=== PATIENT | female | born 1950 | race Caucasian/White ===

== ENCOUNTER 2016-03-19 19:36 | Emergency (ER) | payer BC ==
[~2016-03-19] VITALS: Ht 149.9 cm; Wt 46.7 kg
[~2016-03-19 19:36] MED LIST: AMLO5TAB4 PO; ATOR80TA63 PO; DICY10CA59 PO; LISI2.5T48 PO; PANT20TA2 PO; [UNRECOGNIZED DRUG - CODE] PO
[2016-03-19 19:50] VITALS: BP 152/70; PULSE 90; RESP 18; TEMP 98.4; O2SAT 98
--- NOTE | 2016-03-19 20:00 | NUR ---
Patient to ER bed 04 to gown for evaluation. Side rails up.
--- NOTE | 2016-03-19 20:05 | NUR ---
Pt brought by self, A&Ox4, pt c/o abd pain 09/16,N/V since today, skin pink and warm, cap refill <3, VSS, ambulatory, radial pulses equal and strong.
--- NOTE | 2016-03-19 20:59 | NUR ---
Dr Leiva at bedside examining patient.
--- NOTE | 2016-03-19 21:38 | NUR ---
Pt on stable condition, abd pain 4/10, skin pink and warm, cap refill <3.
[2016-03-19] MEDS ORDERED: NACL 0.9% 1,000 ML IV ONE (21:55)
[2016-03-19] MEDS ORDERED: DIPHENHYDRAMINE INJ 50 MG/ML VIAL IVP ONE (22:00)
[2016-03-19] MEDS ORDERED: MORPHINE 2 MG/ML INJ. SYRINGE IVP ONE (22:00)
[2016-03-19 22:08] LABS: BILIRUBIN,URINE NEGATIVE (NEGATIVE); BLOOD, URINE NEGATIVE (NEGATIVE); CLARITY/URINE SL HAZY (CLEAR); COLOR,URINE YELLOW (YELLOW); GLUCOSE,URINE NEGATIVE (NEGATIVE); KETONES,URINE 1+ (NEGATIVE); LEUKOCYTE ESTERASE ,URINE NEGATIVE (NEGATIVE); NITRITE, URINE NEGATIVE (NEGATIVE); PH,URINE 5.5 (5.0-8.0); PROTEIN URINE TRACE (NEGATIVE); UROBILINOGEN,URINE 0.2 (0.2-1.0)
[2016-03-19 22:29] LABS: HEMATOCRIT 38.5 % (36-48); MEAN CORPUSCULAR HEMOGLOBIN 29 pg (27-31); MEAN CORPUSCULAR HGB CONC 34 % (32-36); MEAN CORPUSCULAR VOLUME 85 fL (79.0-98.0); PLATELET COUNT (AUTO) 194 K/uL (130-430); RED BLOOD CELL COUNT(AUTO) 4.52 MIL/uL (4.2-6.2); RED CELL DISTRIBUTION WIDTH 14.6 % (9.0-15.0); WHITE BLOOD COUNT (AUTO) 15.8 K/uL (4.8-10.8)
[2016-03-19 22:30] LABS: CALCIUM 8.8 mg/dL (8.4-11.0); CREATININE 0.81 mg/dL (0.55-1.30)
[2016-03-19 22:33] LABS: RBC,URINE 0-3 /HPF (0-3); WBC,URINE 0-3 /HPF (0-3)
[2016-03-19 22:34] LABS: BACTERIA,URINE FEW /HPF (None Seen); CALCIUM OXALATE CRYSTALS,UR 2+ /HPF (None Seen); MUCUS,URINE 2+ /LPF (None Seen)
[2016-03-19 22:36] LABS: ALBUMIN 3.4 g/dL (3.4-4.8); TOTAL BILIRUBIN 0.4 mg/dL (0.0-1.0); TOTAL PROTEIN, SERUM 6.8 g/dL (6.4-8.3)
--- NOTE | 2016-03-19 22:39 | NUR ---
Pt on stable condition, denies pain at this time, VSS.
[2016-03-19 22:43] LABS: BAND % (MANUAL) 6 % (0-6); BASOPHILS % (MANUAL) 0 % (0-2); EOSINOPHILS % (MANUAL) 0 % (0-7); LYMPHOCYTES % (MANUAL) 1 % (20-46); MONOCYTES % (MANUAL) 3 % (0-11)
--- NOTE | 2016-03-19 22:45 | NUR ---
Tia pizarro in [facility] - 03/19/16 at 2339 by [email or web address] Report given to Mike WEEMS
--- NOTE | 2016-03-19 23:30 | NUR ---
Tia pizarro in [facility] - 03/19/16 at 2345 by [email or web address] Report given to Dada WEEMS
--- NOTE | 2016-03-19 23:44 | NUR ---
Report given to Mis WEEMS
[2016-03-20] MEDS ORDERED: MORPHINE 2 MG/ML INJ. SYRINGE IVP ONE (00:30)
[2016-03-20 02:55] VITALS: BP 142/68; PULSE 78; RESP 18; TEMP 98.1; O2SAT 98
--- NOTE | 2016-03-20 02:55 | NUR ---
Patient given written and verbal discharge instructions and verbalizes understanding. ER MD Leiva discussed with patient the results and treatment provided. Given copies of tests performed in ER. Patient in stable condition. ID arm band removed. IV catheter removed intact and dressing applied, no active bleeding. Rx of tramadol and compazine given. Patient educated on pain management and to follow up with PMD. Pain Scale 0/10 Opportunity for questions provided and answered.
== END 2016-03-20 02:55 | disposition home or self-care (01) ==
LOC: SED 19:36
DX: E86.0 Dehydration (principal); R10.33 Periumbilical pain; K21.9 Gastro-esophageal reflux disease without esophagitis; I10 Essential (primary) hypertension; K58.9 Irritable bowel syndrome, unspecified; E78.00 Pure hypercholesterolemia, unspecified; C54.1 Malignant neoplasm of endometrium; Z88.0 Allergy status to penicillin; Z90.710 Acquired absence of both cervix and uterus
CPT/HCPCS: 36415; 74020; 80053; 81000; 83605; 83690; 85007; 85027; 87040; 96361; 96374; 96375; 96376; 99285; J1200; J2270 ×2; J7030

== ENCOUNTER 2016-05-16 17:24 | Inpatient (IN) | payer BC ==
[~2016-05-16] VITALS: Ht 154.9 cm; Wt 46.7 kg
[2016-05-16] MEDS ORDERED: NACL 0.9% 1,000 ML IV SCH (17:34)
[2016-05-16 17:39] VITALS: BP 147/78; PULSE 92; RESP 22; TEMP 96; O2SAT 100
[2016-05-16 18:10] LABS: LYMPHOCYTES # (AUTO) 0.8 K/uL (1.0-5.5); LYMPHOCYTES % (AUTO) 4.6 % (20.5-51.5); MONOCYTES # (AUTO) 0.7 K/uL (0.0-1.0); NEUTROPHILS # (AUTO) 15.2 K/uL (1.8-7.7)
[2016-05-16 18:15] LABS: BASOPHILS # (AUTO) 0.3 K/uL (0.0-0.2); BASOPHILS % (AUTO) 1.7 % (0.0-2.0); HEMATOCRIT 39.8 % (36-48); HEMOGLOBIN 13.6 g/dL (12.0-16.0); MEAN CORPUSCULAR HEMOGLOBIN 29 pg (27-31); MEAN CORPUSCULAR HGB CONC 34 % (32-36); MEAN CORPUSCULAR VOLUME 84 fL (79.0-98.0); MONOCYTES % (AUTO) 4.3 % (1.7-9.3); NEUTROPHILS % (AUTO) 89.4 % (40.0-70.0); PLATELET COUNT (AUTO) 248 K/uL (130-430); RED BLOOD CELL COUNT(AUTO) 4.72 MIL/uL (4.2-6.2); RED CELL DISTRIBUTION WIDTH 13.7 % (9.0-15.0)
[2016-05-16 18:21] LABS: CALCIUM 9.7 mg/dL (8.4-11.0); CREATININE 1.02 mg/dL (0.55-1.30); POTASSIUM 3.9 mmol/L (3.5-5.1)
[2016-05-16 18:22] LABS: PROTHROMBIN TIME 10.4 SECS (9.5-12.5)
[2016-05-16 18:25] LABS: ALBUMIN 3.9 g/dL (3.4-4.8); TOTAL BILIRUBIN 0.4 mg/dL (0.0-1.0); TOTAL PROTEIN, SERUM 7.6 g/dL (6.4-8.3)
[2016-05-16] MEDS ORDERED: KETOROLAC TROMETHAMINE 30 MG VIAL IVP ONE (19:00)
[2016-05-16] MEDS ORDERED: PROCHLORPERAZINE EDISYLATE 10 MG/2 ML VIAL IVP ONE (19:00)
[2016-05-16] MEDS ORDERED: metroNIDAZOLE 500 mg/NS 100 ML IV ONE ×2 (19:00→22:34)
[2016-05-16] MEDS ORDERED: ONDANSETRON HCL 4 MG/2 ML VIAL IVP ONE (19:00)
--- NOTE | 2016-05-16 19:00 | NUR ---
Placed in room 4 . Placed on director of exhibits, blood pressure machine and pulse oximeter. To gown for exam. Side rails up.
--- NOTE | 2016-05-16 19:00 | NUR ---
Pt presents to ED with c/o intermitten sharp pain at epigastric abdomen 11/16, started since yesterday. pt stated she visited ED in the past for the same problem before. Hypoactive bowel sound, abdomen distended and tender. A&Ox4, denies SOB or chestpain, denies N/V/D. Skin intact. Will continue to monitor
--- NOTE | 2016-05-16 19:20 | NUR ---
MD Bear at bedside examining pt
--- NOTE | 2016-05-16 20:10 | NUR ---
NG tube insertion unsuccessful. 14 fr NG tube removed, pt tolerated well, no distress noted.
[2016-05-16] MEDS ORDERED: LIP80 PO (20:16)
[2016-05-16] MEDS ORDERED: PROC10TA PO (20:16)
--- NOTE | 2016-05-16 20:22 | NUR ---
Medication reconciliation completed with information provided by pt. Any prior medication reconciliation on file was reviewed and corrected.
--- NOTE | 2016-05-16 20:28 | NUR ---
SEPIS protocol met, 1500 mL NS bolus administered, blood cult x2, lactic acid x2, broad spectrum antibx given
[2016-05-16] MEDS ORDERED: MORPHINE 2 MG/ML INJ. SYRINGE IVP PRN (20:30)
[2016-05-16] MEDS ORDERED: NS 500 ML IV ONE (20:30)
[2016-05-16] MEDS ORDERED: ONDANSETRON HCL 4 MG/2 ML VIAL IVP PRN (20:30)
--- NOTE | 2016-05-16 20:38 | NUR ---
ADMISSION NOTE Received patient from ER via gurney. Patient admitted with diagnosis of Small bowel obstruction. Patient is awake, alert, oriented X 4. Patient oriented to hospital room, call light, toileting, pain management and safety-teach back done. Patient informed that [place] will be her nurse and that their room number is 103B. Personal belongings checked and Belongings List documented. Call light within reach.
--- NOTE | 2016-05-16 20:40 | NUR ---
Patient will be admitted to care of . Admitted to med-surg unit. Will go to room 103A. Belongings list completed. Summary report printed. Report given to Zuleyka WEEMS
--- NOTE | 2016-05-16 20:42 | NUR ---
INITIAL NOTE Patient alert, awake, verbally communicate. AO x 4. Denied of pain at this time. Skin warm and dry to touch. IV intact to RFA, no redness, no swelling, no drainage. On bolus NS 500ml from ER. Discussed the safety issue, use call light when need help, and plan of care, verbally understanding. Safety measure maintained. Call light within reached. Bed in low position, bed alarm on, side rails up. Will continue to monitor.
[2016-05-16 21:12] VITALS: BP 116/54; PULSE 98; RESP 18; TEMP 98.6; O2SAT 97
--- NOTE | 2016-05-16 21:45 | NUR ---
Consultation Paged Reason for consultation: Small Bowel Obstruction Was consult called: Yes Person who was notified: Radha Consulting Physician: Gucci Kiran Iv Technician Specialty: Streetcar Dispatcher
--- NOTE | 2016-05-16 21:45 | NUR ---
BARAK FRANCISCO ASSESSED AND TALKED TO PATIENT AT BEDSIDE
--- NOTE | 2016-05-16 22:05 | NUR ---
ARTIST AND REPERTOIRE MANAGER AMBULATED PATIENT TO BATHROOM
[2016-05-16] MEDS ORDERED: LEVOFLOXACIN 500 MG/D5W 100 ML IV ONE (22:34)
[2016-05-16] MEDS: D5/0.45 NS 1,000 ML IV SCH (22:49)
[2016-05-16] MEDS: LEVOFLOXACIN 500 MG/D5W 100 ML IV SCH (22:55)
--- NOTE | 2016-05-16 23:12 | NUR ---
ROUND Patient resting on the bed with eyes closed. No acute distress. Safety measure maintained. Call light within reached. Continue to monitor.
[2016-05-16 23:23] VITALS: BP 116/54; PULSE 98; RESP 18; TEMP 98.6; O2SAT 97
[2016-05-17 00:03] VITALS: BP_SYST 120; BP_SYST 132; BP_DIAS 58; BP_DIAS 65; PULSE 105; PULSE 89; RESP 18; RESP 20; TEMP 98.6; TEMP 99.4; O2SAT 97; O2SAT 98
--- NOTE | 2016-05-17 01:08 | NUR ---
ROUND Patient sleeping comfortable. Respiration even and unlabored. No acute distress. Safety measure maintained. Bed in low position, bed alarm on, side rails up. Call light within reached. Continue to monitor.
[2016-05-17] MEDS: metroNIDAZOLE 500 mg/NS 100 ML IV SCH ×3 (02:58→18:09)
[2016-05-17 04:34] VITALS: BP 120/59; PULSE 68; RESP 18; TEMP 98.8; O2SAT 94
--- NOTE | 2016-05-17 05:18 | NUR ---
ROUND Patient sleeping comfortable. No acute distress. Safety measure maintained. Bed in low position, bed alarm on, side rails up. Call light within reached. Continue to monitor.
--- NOTE | 2016-05-17 06:43 | NUR ---
CLOSING NOTE Patient resting on the bed comfortable. Denied of pain. No c/o nausea or vomiting. Skin warm and dry to touch. IV intact, no redness, no swelling, no drainage. IVF infusing well. Continue on NPO. Ambulated to bathroom with assistance. All needs met. Hourly rounding during shift. Safety measure maintained. Call light within reached. Bed in low position, side rails up, bed alarm on. Will endorse to morning shift nurse.
[2016-05-17 07:33] LABS: BASOPHILS % (AUTO) 0.3 % (0.0-2.0); EOSINOPHILS % (AUTO) 0.7 % (0.0-4.0); HEMOGLOBIN 10.6 g/dL (12.0-16.0); LYMPHOCYTES # (AUTO) 1.2 K/uL (1.0-5.5); LYMPHOCYTES % (AUTO) 23.8 % (20.5-51.5); MEAN CORPUSCULAR HEMOGLOBIN 29 pg (27-31); MEAN CORPUSCULAR HGB CONC 33 % (32-36); MEAN CORPUSCULAR VOLUME 86 fL (79.0-98.0); MONOCYTES # (AUTO) 0.5 K/uL (0.0-1.0); MONOCYTES % (AUTO) 9.6 % (1.7-9.3); NEUTROPHILS # (AUTO) 3.4 K/uL (1.8-7.7); NEUTROPHILS % (AUTO) 65.6 % (40.0-70.0); PLATELET COUNT (AUTO) 175 K/uL (130-430); RED BLOOD CELL COUNT(AUTO) 3.71 MIL/uL (4.2-6.2); RED CELL DISTRIBUTION WIDTH 13.9 % (9.0-15.0); WHITE BLOOD COUNT (AUTO) 5.1 K/uL (4.8-10.8)
--- NOTE | 2016-05-17 08:00 | NUR ---
OUT TO ABDOMINAL SMALL BOWEL FOLLOWTHROUGH VIA WHEELCHAIR.
[2016-05-17] MEDS ORDERED: GASTROGRAFIN 120 ML ONE (08:18)
[2016-05-17 08:19] LABS: ALBUMIN 2.6 g/dL (3.4-4.8); CALCIUM 7.9 mg/dL (8.4-11.0); CREATININE 0.88 mg/dL (0.55-1.30); POTASSIUM 4.1 mmol/L (3.5-5.1); TOTAL BILIRUBIN 0.3 mg/dL (0.0-1.0); TOTAL PROTEIN, SERUM 5.3 g/dL (6.4-8.3)
[2016-05-17] MEDS: ATORVASTATIN 20 MG TABLET PO SCH (09:00)
[2016-05-17] MEDS: amLODIPine BESYLATE 5 MG TABLET PO SCH (09:00)
[2016-05-17] MEDS: D5/0.45 NS 1,000 ML IV SCH ×2 (09:00→18:10)
--- NOTE | 2016-05-17 10:59 | NUR ---
Call from patients sister Vi (Wilma) - [phone] Asked to have the patient call her back when she is available.
--- NOTE | 2016-05-17 11:10 | NUR ---
Pt back from xray . Per tech, Pt will continue to be NPO for pear picker at 1200 to continue small bowel follow through.
[2016-05-17 12:11] VITALS: BP 156/65; PULSE 93; RESP 16; TEMP 97.7; O2SAT 98
--- NOTE | 2016-05-17 13:10 | NUR ---
Care transferred to Tejal WEEMS. Report given. \ Pt in stable condition. Still NPO at this time until radiology completes the small bowel followthrough.
--- NOTE | 2016-05-17 13:25 | NUR ---
[place] of [facility] Received pt AAOx4, ambulatory. Pt denies any pain or discomfort. Pt had yellow watery BM in bedside commode. Pt's family member at bedside. IV RFA intact, patent, no infiltration noted. Bed in lowest position. Call light in reach. Will continue to monitor.
--- NOTE | 2016-05-17 15:25 | NUR ---
Patient Round Pt resting in bed. Pt denies any pain or discomfort at this time. Will continue to monitor.
[2016-05-17 16:04] VITALS: BP 143/57; PULSE 88; RESP 16; TEMP 98.4; O2SAT 99
--- NOTE | 2016-05-17 16:45 | NUR ---
MD/Patient Round Dr. Solis in to see pt. Dr. Solis is aware of small bowel follow through results from today. New orders made for pt to be on full liquid diet and for consults Dr. Tyler and Dr. Goff. Will continue with plan of care. Pt still having liquid diarrhea, denies any pain or discomfort at this time. Will continue to monitor.
--- NOTE | 2016-05-17 16:54 | NUR ---
Consult was called Re :Abdominal pain spoke with Antonella from Dr Tyler office.
--- NOTE | 2016-05-17 17:02 | NUR ---
Consult was called Re:Abdominal pain spoke Tomeka from Dr Shell harley.
--- NOTE | 2016-05-17 18:58 | NUR ---
Closing/ Pt remains calm lying in bed. Family member at bedside. Pt denies any pain or discomfort at this time. Pt states her diarrhea has been "less frequent" but still liquid. Pt was also seen by Dr. Tyler for consult. Per pt, Dr. Tyler advised her to "eat dinner" tonight. Dietary notified to bring diet tray for pt. Bed in lowest position. Call light in reach. Will endorse plan of care to lead presser nurse.
[2016-05-17 19:00] VITALS: BP 135/55; PULSE 80; RESP 16; TEMP 98; O2SAT 99
--- NOTE | 2016-05-17 19:15 | NUR ---
change of shift.pt's initial assessment.pt.is s/p sm/bwl follow thru.pt.presents multiple bm's:bsc provided. iv fluids infusing i inquired if pt.presents nausea,abd cramping/pain.pt.stated no she is fine.call light w/in pt's reach. @ the bedside.
[2016-05-17 20:00] VITALS: BP 135/55; PULSE 80; RESP 16; TEMP 98; O2SAT 99
--- NOTE | 2016-05-17 20:00 | NUR ---
pt.assessed.v/s assessed:values w/in normal limits.bsc emptied.no c/o nausea,adb pain.no request@this hour.call light w/in pt's reach.
[2016-05-17] MEDS: LEVOFLOXACIN 500 MG/D5W 100 ML IV SCH (21:39)
--- NOTE | 2016-05-17 22:00 | NUR ---
pt.assessed.pt.repositioned self.bsc emptied.ivpb administered.iv fluids infusing. i inquird if pt.presents requested pt.stated anoher blanket.i have provided 2 blankets; warmed.kathy light w/in pt's reach.
[2016-05-18] VITALS: BP 124/56; PULSE 85; RESP 16; TEMP 98.9; O2SAT 98
--- NOTE | 2016-05-18 | NUR ---
pt.assessed.pt.repositioned.pt.presents quiescent affect;calm,asleep.bsc emptied.no distress/discomfort manifested.call light w/in pt's reach.
--- NOTE | 2016-05-18 02:00 | NUR ---
pt.assessed.pt.repositioned.iv fluids infusing.bsc emptied.call light placed w/in pt's reach.
[2016-05-18 04:00] VITALS: BP 129/99; PULSE 77; RESP 16; TEMP 98.1; O2SAT 99
--- NOTE | 2016-05-18 04:00 | NUR ---
pt.assessed.v/s assessed;values w/in normal values.pt.reposiiotned.bsc;emptied.iv fluids infusing. no request@this hour.call light w/in pt's reach.
--- NOTE | 2016-05-18 06:00 | NUR ---
pt.assessed.pt.presents quiescent affect;calm,asleep.iv fluids infusing.bsc emptied.call light w/in pt's reach.no distress/discomfort manifested.
[2016-05-18] MEDS: metroNIDAZOLE 500 mg/NS 100 ML IV SCH ×2 (06:12→10:42)
--- NOTE | 2016-05-18 07:30 | NUR ---
Initial Note Received patient from caustic cresylate shift superintendent nurse, patient is currently resting in bed, patient is alert and oriented x 4, no signs of distress, patient has no complaints of pain at this time, assessment complete, patient currently has IV access in right forearm with fluids infusing, no signs of infiltrations noted, instructed patient to use call webster if assistance is needed, patient verbalized understanding, call webster left within reach of patient's hand, bed in lowest position, two side rails up, fall precautions in place, will continue to monitor patient.
[2016-05-18 08:00] VITALS: BP 131/65; PULSE 73; RESP 16; TEMP 98.3; O2SAT 98
--- NOTE | 2016-05-18 08:10 | NUR ---
medications morning medications given to patient, educated patient to potential side effects of medications, patient verbalized understanding, no other needs at this time, will continue to monitor, fall precautions in place.
[2016-05-18] MEDS: ATORVASTATIN 20 MG TABLET PO SCH (08:11)
[2016-05-18] MEDS: amLODIPine BESYLATE 5 MG TABLET PO SCH (08:11)
[2016-05-18] MEDS: D5/0.45 NS 1,000 ML IV SCH (08:12)
--- NOTE | 2016-05-18 10:07 | NUR ---
RN ROUNDS PATIENT IS CURRENTLY RESTING IN BED TALKING ON PHONE, PATIENT DENIES PAIN AT THIS TIME, WILL CONTINUE TO MONITOR, CALL LI LEFT NEXT TO PATIENT'S HAND, BED IN LOWEST POSITION, TWO SIDE RAILS UP, FALL PRECAUTIONS INPLACE.
--- NOTE | 2016-05-18 10:18 | NUR ---
Admit for AP, partial sbo, likely from scar tissue from rx tx per md notes. Obstruction cleared, will need f/u with pcp and pos anticipate home with family/deni rn/shauna/rupesh hcp [phone]
--- NOTE | 2016-05-18 11:06 | NUR ---
Faxed DC order Home to [facility] at [phone] Filed fax confirmation in binder.
--- NOTE | 2016-05-18 11:45 | NUR ---
RN ROUNDS PATIENT IS CURRENTLY RESTING IN BED, NO COMPLAINTS OF PAIN, NO OTHER NEEDS AT THIS TIME, WILL CONTINUE TO MONITOR, CALL LI LEFT NEXT TO PATIENT'S HAND, BED IN LOWEST POSITION, TWO SIDE RAILS UP, FALL PRECAUTIONS IN PLACE.
[2016-05-18 12:29] VITALS: BP 158/63; PULSE 76; RESP 17; TEMP 97.2; O2SAT 99
[2016-05-18 13:42] VITALS: BP 135/75; PULSE 70; RESP 16; TEMP 98; O2SAT 98
--- NOTE | 2016-05-18 13:45 | NUR ---
RN ROUNDS PATIENT IS CURRENTLY RESTING IN BED,PATIENT HAS NO COMPLAINTS OF PAIN, PATIENT STATED SHE WAS ABLE TO HAVE A BM WITH NO PROBLEMS, WILL CONTINUE TO MONITOR, CALL LI LEFT NEXT TO PATIENT'S HAND, BED IN LOWEST POSITION, TWO SIDE RAILS UP, FALL PRECAUTIONS IN PLACE.
--- NOTE | 2016-05-18 14:20 | NUR ---
D/C Patient Patient given medication reconciliation form and D/C instructions. Exit Care provided. Patient verbalized understanding. MD discussed with patient the results and treatment provided. Ambulatory with steady gait for discharge to home. Patient in stable condition, ID band removed. IV catheter removed, intact and dressing applied, no active bleeding.Patient educated on pain management. All belongings sent with patient.
--- NOTE | 2016-05-19 15:23 | NUR ---
Discharge Follow Up Phone Call: SPOT BILLING CLERK called and spoke with pt ([phone]). Pt states that she is doing well; there are no questions regarding discharge or medication instructions; pt has an appointment with the GI Doctor on 05/20/16; pt will schedule a PCP follow up appointment. SPOT BILLING CLERK offered to assist pt with scheduling PCP appointment, but pt states that she will schedule the appointment. Pt did not express any other needs or concerns and denied the need for additional follow up at this time. No further follow up phone calls required at this time.
== END 2016-05-18 14:20 | disposition home or self-care (01) | DRG 388 ==
LOC: SED 17:24 → SMU 20:25
PROVIDERS: ADMIT Internal Medicine Hospice and Palliative Medicine; ATTEND Internal Medicine
DX: K56.7 Ileus, unspecified (principal); E43 Unspecified severe protein-calorie malnutrition; Z68.1 Body mass index [BMI] 19.9 or less, adult; E78.00 Pure hypercholesterolemia, unspecified; I10 Essential (primary) hypertension; K21.9 Gastro-esophageal reflux disease without esophagitis; D72.829 Elevated white blood cell count, unspecified; D64.9 Anemia, unspecified; Z85.42 Personal history of malignant neoplasm of other parts of uterus; Z87.11 Personal history of peptic ulcer disease; Z88.0 Allergy status to penicillin; Z90.710 Acquired absence of both cervix and uterus; Z79.899 Other long term (current) drug therapy
CPT/HCPCS: 36415; 74250-TC; 80053; 83605; 83690-TC; 85025; 85610-TC; 85730-TC; 87040-TC; 93005; 96365; 96375; 99291; J0780; J1885; J1956; J2405; J3490; J7030; J7040; Q9963

== ENCOUNTER 2016-10-10 04:12 | Inpatient (IN) | payer BC ==
[2016-10-10] VITALS (7 sets, daily range): BP systolic 122–158
[~2016-10-10] VITALS: Ht 177.8 cm; Wt 48.1 kg
[~2016-10-10 04:12] MED LIST changes: +LIP80 PO; -LISI2.5T48 PO; +PROC10TA PO; -[UNRECOGNIZED DRUG - CODE] PO
--- NOTE | 2016-10-10 04:12 | NUR ---
Pt in waiting room awaiting available bed. stable.
[2016-10-10] MEDS ORDERED: NACL 0.9% 1,000 ML IV ONE ×2 (04:34→07:15)
--- NOTE | 2016-10-10 04:40 | NUR ---
Patient to ER bed 7 to gown for evaluation. Side rails up. Report given to FAUSTINA Degroot.
--- NOTE | 2016-10-10 04:41 | NUR ---
Patient AAOx4, ambulatory with steady gait. Patient states having pain to lower abdomen since approximately 2100 last night, states having 1 episode of nausea and vomiting prior to ER visit. Patient states pain scale 8/10, nonradiating. Patient states last bowel movement was yesterday morning. Abdomen tender to palpation, bowel sounds present in all 4 quadrants. Patient denies any other complaints.
[2016-10-10] MEDS ORDERED: ONDANSETRON HCL 4 MG/2 ML VIAL IVP ONE (04:45)
--- NOTE | 2016-10-10 04:50 | NUR ---
ER at bedside examining patient.
[2016-10-10] MEDS ORDERED: MORPHINE 4 MG/ML INJ. SYRINGE IVP ONE (05:00)
--- NOTE | 2016-10-10 05:20 | NUR ---
# 22 gauge angiocath placed to right hand. Use of asceptic technique. Blood return noted. Flushed with 10 cc of normal saline. No evidence of infiltration noted. Patient tolerated well.
[2016-10-10 05:21] LABS: BASOPHILS # (AUTO) 0.1 K/uL (0.0-0.2); BASOPHILS % (AUTO) 0.4 % (0.0-2.0); EOSINOPHILS % (AUTO) 0.2 % (0.0-4.0); HEMATOCRIT 38.9 % (36-48); HEMOGLOBIN 12.9 g/dL (12.0-16.0); LYMPHOCYTES % (AUTO) 7.8 % (20.5-51.5); MEAN CORPUSCULAR HEMOGLOBIN 29 pg (27-31); MEAN CORPUSCULAR HGB CONC 33 % (32-36); MEAN CORPUSCULAR VOLUME 87 fL (79.0-98.0); MONOCYTES # (AUTO) 0.5 K/uL (0.0-1.0); MONOCYTES % (AUTO) 3.7 % (1.7-9.3); NEUTROPHILS # (AUTO) 10.9 K/uL (1.8-7.7); NEUTROPHILS % (AUTO) 87.9 % (40.0-70.0); PLATELET COUNT (AUTO) 202 K/uL (130-430); RED BLOOD CELL COUNT(AUTO) 4.46 MIL/uL (4.2-6.2); RED CELL DISTRIBUTION WIDTH 13.6 % (9.0-15.0); WHITE BLOOD COUNT (AUTO) 12.6 K/uL (4.8-10.8)
[2016-10-10 05:33] LABS: PROTHROMBIN TIME 10.4 SECS (9.5-12.5)
[2016-10-10 05:50] LABS: BILIRUBIN,URINE NEGATIVE (NEGATIVE); BLOOD, URINE NEGATIVE (NEGATIVE); CLARITY/URINE HAZY (CLEAR); COLOR,URINE YELLOW (YELLOW); GLUCOSE,URINE NEGATIVE (NEGATIVE); KETONES,URINE NEGATIVE (NEGATIVE); LEUKOCYTE ESTERASE ,URINE TRACE (NEGATIVE); NITRITE, URINE NEGATIVE (NEGATIVE); PROTEIN URINE NEGATIVE (NEGATIVE); UROBILINOGEN,URINE 0.2 (0.2-1.0)
[2016-10-10 06:06] LABS: BACTERIA,URINE FEW /HPF (None Seen); RBC,URINE 0-3 /HPF (0-3); WBC,URINE 0-3 /HPF (0-3)
[2016-10-10 06:08] LABS: URINE AMORPHOUS PHOSPHATES 4+ /HPF (None Seen)
[2016-10-10] MEDS ORDERED: MORPHINE 2 MG/ML INJ. SYRINGE IVP ONE (06:30)
--- NOTE | 2016-10-10 06:30 | NUR ---
Patient stable, no signs of distress noted. Will continue to monitor.
[2016-10-10 06:39] LABS: CREATININE 1.04 mg/dL (0.55-1.30); POTASSIUM 3.6 mmol/L (3.5-5.1); TOTAL BILIRUBIN 0.5 mg/dL (0.0-1.0)
[2016-10-10 06:40] LABS: ALBUMIN 3.8 g/dL (3.4-4.8)
[2016-10-10] MEDS ORDERED: LIP40 PO (07:07)
[2016-10-10] MEDS ORDERED: RANI300T4 PO (07:08)
[2016-10-10] MEDS ORDERED: MORPHINE 2 MG/ML INJ. SYRINGE IVP PRN (07:30)
[2016-10-10] MEDS ORDERED: HYDROcodone/ACETAMIN 10-325 MG TAB PO PRN (07:30)
[2016-10-10] MEDS ORDERED: ONDANSETRON HCL 4 MG/2 ML VIAL IVP PRN (07:30)
[2016-10-10] MEDS ORDERED: ACETAMINOPHEN 325 MG TABLET PO PRN (07:30)
--- NOTE | 2016-10-10 07:44 | NUR ---
Patient will be admitted to care of Dr. Castro. Admitted to med surg unit. Will go to room 117 B. Belongings list completed. Summary report printed. Report given to FAUSTINA Stokes via telephone.
--- NOTE | 2016-10-10 07:52 | NUR ---
ADMISSION NOTE Received patient from ER via gurney. Patient admitted with diagnosis of Abdominal pain possible small bowel obstruction. Patient is awake, alert, oriented X 3. Patient oriented to hospital room, call light, toileting, pain management and safety-teach back done. Patient informed that Mee will be her nurse and that their room number is 117B. Personal belongings checked and Belongings List documented. Call light within reach.
[2016-10-10] MEDS ORDERED: NON-FORMULARY MEDICATION (Ranitidine Hcl 300 MG) PO SCH (09:00)
--- NOTE | 2016-10-10 09:00 | NUR ---
Irene pritchard; Seen by Dr. Noland and talk to pt.
[2016-10-10] MEDS: D5NS 1,000 ML IV SCH ×2 (09:53→18:49)
[2016-10-10] MEDS: ENOXAPARIN SODIUM 30 MG/0.3 ML SYRINGE SUBCUT SCH (09:55)
--- NOTE | 2016-10-10 10:02 | NUR ---
CONSULT: DR AMINAH CHANG IS AT THE UNIT AND AWARE OF THE CONSULT.
--- NOTE | 2016-10-10 10:16 | NUR ---
Cornel rounds: Seen by Dr. Cox and talk to pt.
--- NOTE | 2016-10-10 10:17 | NUR ---
rounds: patient assisted to toilet, able to walk with assist. complained of abdominal pain. due meds wll be given thru i.v.
[2016-10-10] MEDS ORDERED: GASTROGRAFIN 120 ML ONE (14:14)
--- NOTE | 2016-10-10 14:30 | NUR ---
Small bowel follow through: small bowel series done and waiting for the result.
--- NOTE | 2016-10-10 17:44 | NUR ---
B.M. patient had a bowel movement, watery and brown in color.
--- NOTE | 2016-10-10 18:28 | NUR ---
SBFT: result came in no evidence of SBO. Informed Dr. Anthony with diet order and no surgery. Paged Dr. Castro for the result.
--- NOTE | 2016-10-10 18:56 | NUR ---
closing notes: patient on the toilet seat. Stable. I.v. access patent. Call light within reach. Informed Dr. Castro of Preliminary SBFT result. No new order and patient will stay overnight until the final report. Report will be given to shift stacker.
--- NOTE | 2016-10-10 19:45 | NUR ---
INITIAL NOTE Patient resting on the bed. No acute distress. Respiration even and unlabored. AO x 4. Denied of pain at this time. Skin warm and dry to touch. IV intact to right hand, no redness, no swelling, no drainage. On D5 NS at 100ml/hr, infusing well. at bedside. Discussed the safety issue, use call light when need help, and plan of care, verbally understanding. Safety measure maintained. Bed in low position, side rails up. Call light within reached. Will continue to monitor.
--- NOTE | 2016-10-10 21:15 | NUR ---
ROUND Patient resting on the bed. No acute distress. Respiration even and unlabored. IV intact, IVF infusing well. Family at bedside. Safety measure maintained. Bed in low position, side rails up. Call light within reached. Continue to monitor.
--- NOTE | 2016-10-10 23:08 | NUR ---
ROUND Patient resting on the bed with eyes closed. No acute distress. Respiration even and unlabored. IV intact, IVF infusing well. Safety measure maintained. Bed in low position, side rails up. Call light within reached. Continue to monitor.
--- NOTE | 2016-10-11 01:05 | NUR ---
ROUND Patient sleeping at this time. No acute distress. Respiration even and unlabored. IV intact, IVF infusing well. Safety measure maintained. Bed in low position, side rails up. Call light within reached. Continue to monitor.
--- NOTE | 2016-10-11 03:05 | NUR ---
ROUND Patient sleeping at this time. No acute distress. IV intact, IVF infusing well. Safety measure maintained. Bed in low position, side rails up. Call light within reached. Continue to monitor.
[2016-10-11] MEDS: D5NS 1,000 ML IV SCH (04:37)
--- NOTE | 2016-10-11 05:00 | NUR ---
ROUND Patient resting on the bed with eyes closed. No acute distress. Safety measure maintained. Bed in low position, side rails up. Call light within reached. Continue to monitor.
[2016-10-11 05:30] VITALS: BP_SYST 133
--- NOTE | 2016-10-11 06:42 | NUR ---
CLOSING NOTE Patient resting on the bed with eyes closed. No acute distress. Skin warm and dry to touch. IV intact, IVF infusing well. All needs met. hourly rounding during shift. Safety measure maintained. Call light within reached. Bed in low position, side rails up. Will endorse to morning shift nurse.
--- NOTE | 2016-10-11 07:40 | NUR ---
AM Rounds: Received pt sitting up in bed and sleeping. Breathing even and unlabored on room air. No acute signs of distress noted. IV intact to RUE and patent, infusing ordered fluids well with no redness or swelling noted to site. No other needs noted at this time. Call light in lap. Continue to monitor pt closely.
[2016-10-11 08:12] VITALS: BP_SYST 125
[2016-10-11 08:14] LABS: BASOPHILS % (AUTO) 0.7 % (0.0-2.0); EOSINOPHILS # (AUTO) 0.1 K/uL (0.0-0.4); EOSINOPHILS % (AUTO) 1.7 % (0.0-4.0); HEMATOCRIT 32.6 % (36-48); HEMOGLOBIN 10.7 g/dL (12.0-16.0); LYMPHOCYTES # (AUTO) 1.3 K/uL (1.0-5.5); LYMPHOCYTES % (AUTO) 32.8 % (20.5-51.5); MEAN CORPUSCULAR HEMOGLOBIN 29 pg (27-31); MEAN CORPUSCULAR HGB CONC 33 % (32-36); MEAN CORPUSCULAR VOLUME 88 fL (79.0-98.0); MONOCYTES # (AUTO) 0.3 K/uL (0.0-1.0); MONOCYTES % (AUTO) 8.1 % (1.7-9.3); NEUTROPHILS # (AUTO) 2.3 K/uL (1.8-7.7); NEUTROPHILS % (AUTO) 56.7 % (40.0-70.0); PLATELET COUNT (AUTO) 159 K/uL (130-430); RED BLOOD CELL COUNT(AUTO) 3.72 MIL/uL (4.2-6.2); RED CELL DISTRIBUTION WIDTH 13.9 % (9.0-15.0)
[2016-10-11 08:35] LABS: ALBUMIN 2.5 g/dL (3.4-4.8); CREATININE 0.83 mg/dL (0.55-1.30); POTASSIUM 3.9 mmol/L (3.5-5.1); TOTAL BILIRUBIN 0.3 mg/dL (0.0-1.0)
[2016-10-11] MEDS: ENOXAPARIN SODIUM 30 MG/0.3 ML SYRINGE SUBCUT SCH (09:30)
--- NOTE | 2016-10-11 09:58 | NUR ---
RN Rounds: AM meds given per MD order. Pt tolerates well. Pt denies nausea and vomiting. Call light in lap. Continue to monitor.
[2016-10-11 10:47] VITALS: BP_SYST 125
--- NOTE | 2016-10-11 11:00 | NUR ---
D/C Patient Patient given medication reconciliation form and D/C instructions. Exit Care provided. Patient verbalized understanding. MD discussed with patient the results and treatment provided. Ambulatory with steady gait for discharge to home. Patient in stable condition, ID band removed. IV catheter removed, intact and dressing applied, no active bleeding. No Rx given. Patient educated on pain management and need to follow full liquid at home for 1-2 days. All belongings sent with patient.
--- NOTE | 2016-10-12 13:43 | NUR ---
Discharge Follow Up Phone Call TUNNEL HEADING SUPERVISOR phoned patient, . Patient stated she was doing well. She has progressed to a soft diet this morning and she is feeling fine. She will keep her premade appointment with her PCP. She will discuss diet suggestions with her PCP. Patient had no other questions or concerns.
== END 2016-10-11 11:00 | disposition home or self-care (01) | DRG 390 ==
LOC: SED 04:12 → SMU 07:23
PROVIDERS: ADMIT Internal Medicine; ATTEND Internal Medicine
DX: K56.60 Unspecified intestinal obstruction (principal); I10 Essential (primary) hypertension; K58.9 Irritable bowel syndrome, unspecified; E78.5 Hyperlipidemia, unspecified; Z90.710 Acquired absence of both cervix and uterus; Z92.3 Personal history of irradiation; Z92.21 Personal history of antineoplastic chemotherapy; Z85.42 Personal history of malignant neoplasm of other parts of uterus; Z79.899 Other long term (current) drug therapy; Z88.0 Allergy status to penicillin; K21.9 Gastro-esophageal reflux disease without esophagitis
CPT/HCPCS: 36415; 74250-TC; 80053; 81000-TC; 82150-TC; 83605; 83690-TC; 84484; 85025; 85610-TC; 87040-TC; 93005; 96374; 96375; 96376; 99285; J1650; J2270; J2405; J7030; J7042; Q9963

== ENCOUNTER 2016-12-02 16:57 | Inpatient (IN) | payer BC ==
[~2016-12-02] VITALS: Ht 147.3 cm; Wt 44.6 kg
[~2016-12-02 16:57] MED LIST changes: -ATOR80TA63 PO; -DICY10CA59 PO; +LIP40 PO; -LIP80 PO; -PANT20TA2 PO; -PROC10TA PO; +RANI300T4 PO
[2016-12-02 17:04] VITALS: BP_SYST 153
[2016-12-02 17:44] LABS: MEAN CORPUSCULAR HEMOGLOBIN 29 pg (27-31); MEAN CORPUSCULAR HGB CONC 33 % (32-36); MEAN CORPUSCULAR VOLUME 88 fL (79.0-98.0)
[2016-12-02 17:48] LABS: BASOPHILS # (AUTO) 0.1 K/uL (0.0-0.2); BASOPHILS % (AUTO) 1.1 % (0.0-2.0); EOSINOPHILS % (AUTO) 0.2 % (0.0-4.0); HEMATOCRIT 40.6 % (36-48); HEMOGLOBIN 13.5 g/dL (12.0-16.0); LYMPHOCYTES # (AUTO) 0.8 K/uL (1.0-5.5); LYMPHOCYTES % (AUTO) 10.9 % (20.5-51.5); MONOCYTES # (AUTO) 0.4 K/uL (0.0-1.0); MONOCYTES % (AUTO) 5.2 % (1.7-9.3); NEUTROPHILS # (AUTO) 6.5 K/uL (1.8-7.7); NEUTROPHILS % (AUTO) 82.6 % (40.0-70.0); PLATELET COUNT (AUTO) 226 K/uL (130-430); RED CELL DISTRIBUTION WIDTH 13.7 % (9.0-15.0); WHITE BLOOD COUNT (AUTO) 7.8 K/uL (4.8-10.8)
[2016-12-02 18:13] LABS: CALCIUM 9.7 mg/dL (8.4-11.0); CREATININE 0.89 mg/dL (0.55-1.30); POTASSIUM 4.1 mmol/L (3.5-5.1)
[2016-12-02 18:16] LABS: PROTHROMBIN TIME 10.5 SECS (9.5-12.5)
[2016-12-02 18:18] LABS: ALBUMIN 3.6 g/dL (3.4-4.8); TOTAL BILIRUBIN 0.5 mg/dL (0.0-1.0)
[2016-12-02] MEDS ORDERED: HYDROmorphone 1 MG INJ. 1 MG/ML AMPUL IVP ONE (19:15)
[2016-12-02] MEDS ORDERED: MORPHINE 2 MG/ML INJ. SYRINGE IVP ONE (21:00)
[2016-12-02] MEDS ORDERED: MORPHINE 2 MG/ML INJ. SYRINGE IVP PRN (21:45)
[2016-12-02] MEDS ORDERED: METOCLOPRAMIDE HCL 10 MG/2 ML VIAL IVP PRN (21:45)
[2016-12-02] MEDS ORDERED: ONDANSETRON HCL 4 MG/2 ML VIAL IVP PRN (21:45)
[2016-12-02] MEDS ORDERED: DIPHENHYDRAMINE INJ 50 MG/ML VIAL IVP PRN (21:45)
[2016-12-02] MEDS: PANTOPRAZOLE SODIUM 40 MG/VIAL (PROTONIX) IVP SCH (22:10)
[2016-12-02] MEDS: D5/0.45 NS 1,000 ML IV SCH (22:10)
[2016-12-03 00:21] VITALS: BP_SYST 140
[2016-12-03] MEDS ORDERED: FLU VACC QS 2017-18(36MOS+)/PF 0.5 ML/SYR SYRINGE I.M. PRN (00:30)
[2016-12-03 03:19] VITALS: BP_SYST 107
[2016-12-03 06:35] LABS: BASOPHILS # (AUTO) 0.1 K/uL (0.0-0.2); BASOPHILS % (AUTO) 1.3 % (0.0-2.0); EOSINOPHILS % (AUTO) 0.4 % (0.0-4.0); HEMATOCRIT 34.5 % (36-48); HEMOGLOBIN 11.5 g/dL (12.0-16.0); LYMPHOCYTES # (AUTO) 1.2 K/uL (1.0-5.5); LYMPHOCYTES % (AUTO) 23.4 % (20.5-51.5); MEAN CORPUSCULAR HEMOGLOBIN 29 pg (27-31); MEAN CORPUSCULAR HGB CONC 33 % (32-36); MEAN CORPUSCULAR VOLUME 88 fL (79.0-98.0); MONOCYTES # (AUTO) 0.4 K/uL (0.0-1.0); MONOCYTES % (AUTO) 7.7 % (1.7-9.3); NEUTROPHILS # (AUTO) 3.3 K/uL (1.8-7.7); NEUTROPHILS % (AUTO) 67.2 % (40.0-70.0); PLATELET COUNT (AUTO) 195 K/uL (130-430); RED BLOOD CELL COUNT(AUTO) 3.93 MIL/uL (4.2-6.2); RED CELL DISTRIBUTION WIDTH 13.4 % (9.0-15.0)
[2016-12-03 06:52] LABS: CALCIUM 8.8 mg/dL (8.4-11.0); CREATININE 0.86 mg/dL (0.55-1.30); POTASSIUM 4.3 mmol/L (3.5-5.1)
[2016-12-03 06:59] LABS: ALBUMIN 2.9 g/dL (3.4-4.8); TOTAL BILIRUBIN 0.5 mg/dL (0.0-1.0)
[2016-12-03] MEDS ORDERED: GASTROGRAFIN 120 ML ONE (08:27)
[2016-12-03] MEDS: D5/0.45 NS 1,000 ML IV SCH (10:57)
[2016-12-03] MEDS: PANTOPRAZOLE SODIUM 40 MG/VIAL (PROTONIX) IVP SCH (11:27)
[2016-12-03 12:21] VITALS: BP_SYST 137
[2016-12-03 14:22] VITALS: BP_SYST 132
== END 2016-12-03 16:05 | disposition home or self-care (01) | DRG 390 ==
LOC: SED 16:57 → SMU 19:39
PROVIDERS: ADMIT Internal Medicine; ATTEND Internal Medicine
DX: K56.7 Ileus, unspecified (principal); E11.9 Type 2 diabetes mellitus without complications; K21.9 Gastro-esophageal reflux disease without esophagitis; E78.5 Hyperlipidemia, unspecified; F19.10 Other psychoactive substance abuse, uncomplicated; K58.9 Irritable bowel syndrome, unspecified; I10 Essential (primary) hypertension; Z92.21 Personal history of antineoplastic chemotherapy; Z90.710 Acquired absence of both cervix and uterus; Z85.42 Personal history of malignant neoplasm of other parts of uterus; Z92.3 Personal history of irradiation; Z88.0 Allergy status to penicillin; Z79.899 Other long term (current) drug therapy
CPT/HCPCS: 36415; 74250-TC; 80053; 83690-TC; 85025; 85610-TC; 85730-TC; 96374; 99285; C9113; J1170; J2270; J2405; Q2037; Q9963

== ENCOUNTER 2018-03-31 04:17 | Inpatient (IN) | payer BC ==
[~2018-03-31] VITALS: Ht 147.3 cm; Wt 44.5 kg
[~2018-03-31 04:17] MED LIST changes: +NEU100 PO
[2018-03-31 04:20] VITALS: BP_SYST 150
[2018-03-31] MEDS ORDERED: ONDANSETRON 4 MG ODT TAB PO ONE (04:30)
[2018-03-31] MEDS ORDERED: KETOROLAC TROMETHAMINE 30 MG VIAL IVP ONE (04:45)
[2018-03-31 05:20] LABS: BILIRUBIN,URINE NEGATIVE (NEGATIVE); BLOOD, URINE NEGATIVE (NEGATIVE); CLARITY/URINE CLEAR (CLEAR); COLOR,URINE YELLOW (YELLOW); GLUCOSE,URINE NEGATIVE (NEGATIVE); KETONES,URINE 1+ (NEGATIVE); LEUKOCYTE ESTERASE ,URINE NEGATIVE (NEGATIVE); NITRITE, URINE NEGATIVE (NEGATIVE); PROTEIN URINE TRACE (NEGATIVE); UROBILINOGEN,URINE 0.2 (0.2-1.0)
[2018-03-31 05:24] LABS: WHITE BLOOD COUNT (AUTO) 10.8 K/uL (4.8-10.8)
[2018-03-31 05:25] LABS: HEMATOCRIT 36.5 % (36-48); HEMOGLOBIN 11.9 g/dL (12.0-16.0); MEAN CORPUSCULAR HEMOGLOBIN 28 pg (27-31); MEAN CORPUSCULAR HGB CONC 33 % (32-36); MEAN CORPUSCULAR VOLUME 87 fL (79.0-98.0); PLATELET COUNT (AUTO) 254 K/uL (130-430); RED BLOOD CELL COUNT(AUTO) 4.21 MIL/uL (4.2-6.2); RED CELL DISTRIBUTION WIDTH 14.2 % (9.0-15.0)
[2018-03-31 05:26] LABS: BACTERIA,URINE FEW /HPF (None Seen); RBC,URINE 0-3 /HPF (0-3); WBC,URINE 0-3 /HPF (0-3)
[2018-03-31 05:27] LABS: HYALINE CASTS, URINE 0-10 /LPF (None Seen)
[2018-03-31 05:28] LABS: LYMPHOCYTES % (AUTO) 6.7 % (20.5-51.5); NEUTROPHILS % (AUTO) 89.2 % (40.0-70.0)
[2018-03-31 05:29] LABS: BASOPHILS % (AUTO) 0.2 % (0.0-2.0); LYMPHOCYTES # (AUTO) 0.7 K/uL (1.0-5.5); MONOCYTES % (AUTO) 3.9 % (1.7-9.3); NEUTROPHILS # (AUTO) 9.7 K/uL (1.8-7.7)
[2018-03-31 05:30] LABS: MONOCYTES # (AUTO) 0.4 K/uL (0.0-1.0)
[2018-03-31 05:34] LABS: POTASSIUM 4.4 mmol/L (3.5-5.1)
[2018-03-31 05:40] LABS: ALBUMIN 3.2 g/dL (3.4-4.8); TOTAL BILIRUBIN 0.4 mg/dL (0.0-1.0)
[2018-03-31 06:53] VITALS: BP_SYST 157
[2018-03-31 08:30] VITALS: BP_SYST 152
[2018-03-31] MEDS: NACL 0.9% 1,000 ML IV SCH ×4 (08:44→21:51)
[2018-03-31] MEDS ORDERED: ONDANSETRON HCL 4 MG/2 ML VIAL IVP PRN (08:45)
[2018-03-31] MEDS ORDERED: MORPHINE 4 MG/ML INJ. SYRINGE IVP PRN ×2 (08:45)
[2018-03-31] MEDS ORDERED: ALBUTEROL SULFATE 0.083% 2.5 MG/3 ML VIAL.NEB INH PRN (08:45)
[2018-03-31] MEDS: ATORVASTATIN 20 MG TABLET PO SCH ×2 (09:00→09:10)
[2018-03-31] MEDS: amLODIPine BESYLATE 5 MG TABLET PO SCH ×2 (09:00→09:10)
[2018-03-31] MEDS: FAMOTIDINE PF 20 MG/2 ML VIAL IVP SCH ×2 (09:10→21:45)
[2018-03-31] MEDS ORDERED: GASTROGRAFIN 120 ML ONE (09:34)
[2018-03-31 15:57] VITALS: BP_SYST 151
[2018-03-31 20:41] VITALS: BP_SYST 146
[2018-03-31] MEDS ORDERED: GABAPENTIN 100 MG CAPSULE PO SCH (21:00)
[2018-04-01] MEDS: NACL 0.9% 1,000 ML IV SCH ×2 (02:45→04:44)
[2018-04-01 08:00] VITALS: BP_SYST 150
[2018-04-01 08:27] LABS: ALBUMIN 2.5 g/dL (3.4-4.8); CALCIUM 7.8 mg/dL (8.4-11.0); CREATININE 0.92 mg/dL (0.55-1.30); POTASSIUM 3.9 mmol/L (3.5-5.1); TOTAL BILIRUBIN 0.3 mg/dL (0.0-1.0)
[2018-04-01] MEDS: ATORVASTATIN 20 MG TABLET PO SCH (08:58)
[2018-04-01] MEDS: FAMOTIDINE PF 20 MG/2 ML VIAL IVP SCH (08:59)
[2018-04-01] MEDS: amLODIPine BESYLATE 5 MG TABLET PO SCH (08:59)
[2018-04-01 09:04] LABS: HEMATOCRIT 29.6 % (36-48); HEMOGLOBIN 9.9 g/dL (12.0-16.0); LYMPHOCYTES % (AUTO) 21.5 % (20.5-51.5); MEAN CORPUSCULAR HEMOGLOBIN 29 pg (27-31); MEAN CORPUSCULAR HGB CONC 33 % (32-36); MEAN CORPUSCULAR VOLUME 87 fL (79.0-98.0); MONOCYTES % (AUTO) 10.7 % (1.7-9.3); NEUTROPHILS % (AUTO) 67.2 % (40.0-70.0); PLATELET COUNT (AUTO) 210 K/uL (130-430); RED BLOOD CELL COUNT(AUTO) 3.39 MIL/uL (4.2-6.2)
[2018-04-01 09:05] LABS: BASOPHILS % (AUTO) 0.3 % (0.0-2.0); EOSINOPHILS % (AUTO) 0.3 % (0.0-4.0); LYMPHOCYTES # (AUTO) 1.4 K/uL (1.0-5.5); MONOCYTES # (AUTO) 0.7 K/uL (0.0-1.0); NEUTROPHILS # (AUTO) 4.5 K/uL (1.8-7.7); WHITE BLOOD COUNT (AUTO) 6.7 K/uL (4.8-10.8)
[2018-04-01 12:24] VITALS: BP_SYST 138
[2018-04-01 14:03] VITALS: BP_SYST 138
== END 2018-04-01 14:25 | disposition home or self-care (01) | DRG 389 ==
LOC: SED 04:17 → SMU 06:31
PROVIDERS: ADMIT Internal Medicine Hospice and Palliative Medicine; ATTEND Internal Medicine Hospice and Palliative Medicine
DX: K56.51 Intestinal adhesions [bands], with partial obstruction (principal); E44.0 Moderate protein-calorie malnutrition; E11.9 Type 2 diabetes mellitus without complications; I10 Essential (primary) hypertension; K21.9 Gastro-esophageal reflux disease without esophagitis; K58.9 Irritable bowel syndrome, unspecified; Z85.42 Personal history of malignant neoplasm of other parts of uterus; Z85.44 Personal history of malignant neoplasm of other female genital organs; Z87.11 Personal history of peptic ulcer disease; Z90.710 Acquired absence of both cervix and uterus; Z88.0 Allergy status to penicillin; Z79.899 Other long term (current) drug therapy; Z90.722 Acquired absence of ovaries, bilateral; Z92.21 Personal history of antineoplastic chemotherapy; Z92.3 Personal history of irradiation
CPT/HCPCS: 36415; 74250-TC; 80053; 81000-TC; 83690-TC; 85025; 87081; 96374; 99285; J1885; J2270; J2405; J3490; J7030; Q0162; Q9963

== ENCOUNTER 2018-05-27 11:56 | Inpatient (IN) | payer BC ==
[~2018-05-27] VITALS: Ht 157.5 cm; Wt 48.1 kg
[2018-05-27 12:17] VITALS: BP_SYST 144
[2018-05-27 13:10] LABS: CALCIUM 9.5 mg/dL (8.4-11.0); CREATININE 0.99 mg/dL (0.55-1.30); POTASSIUM 4.4 mmol/L (3.5-5.1)
[2018-05-27 13:15] LABS: ALBUMIN 3.9 g/dL (3.4-4.8); TOTAL BILIRUBIN 0.5 mg/dL (0.0-1.0)
[2018-05-27 13:23] LABS: BASOPHILS % (AUTO) 0.1 % (0.0-2.0); HEMATOCRIT 42.7 % (36-48); LYMPHOCYTES # (AUTO) 0.6 K/uL (1.0-5.5); LYMPHOCYTES % (AUTO) 5.5 % (20.5-51.5); MEAN CORPUSCULAR HEMOGLOBIN 29 pg (27-31); MEAN CORPUSCULAR HGB CONC 33 % (32-36); MEAN CORPUSCULAR VOLUME 87 fL (79.0-98.0); MONOCYTES # (AUTO) 0.3 K/uL (0.0-1.0); MONOCYTES % (AUTO) 2.6 % (1.7-9.3); NEUTROPHILS # (AUTO) 10.8 K/uL (1.8-7.7); NEUTROPHILS % (AUTO) 91.8 % (40.0-70.0); PLATELET COUNT (AUTO) 274 K/uL (130-430); RED BLOOD CELL COUNT(AUTO) 4.93 MIL/uL (4.2-6.2); RED CELL DISTRIBUTION WIDTH 16.6 % (9.0-15.0); WHITE BLOOD COUNT (AUTO) 11.8 K/uL (4.8-10.8)
[2018-05-27] MEDS ORDERED: NACL 0.9% 1,000 ML IV ONE (13:38)
[2018-05-27] MEDS ORDERED: ONDANSETRON HCL 4 MG/2 ML VIAL IVP ONE (13:45)
[2018-05-27] MEDS ORDERED: MORPHINE 4 MG/ML INJ. SYRINGE IVP ONE (13:45)
[2018-05-27 14:04] LABS: INR 0.9 (0.8-1.2); PROTHROMBIN TIME 9.5 SECS (9.5-12.5)
[2018-05-27 14:09] LABS: BILIRUBIN,URINE NEGATIVE (NEGATIVE); BLOOD, URINE NEGATIVE (NEGATIVE); CLARITY/URINE CLEAR (CLEAR); COLOR,URINE YELLOW (YELLOW); GLUCOSE,URINE NEGATIVE (NEGATIVE); KETONES,URINE TRACE (NEGATIVE); LEUKOCYTE ESTERASE ,URINE NEGATIVE (NEGATIVE); NITRITE, URINE NEGATIVE (NEGATIVE); PROTEIN URINE TRACE (NEGATIVE); UROBILINOGEN,URINE 0.2 (0.2-1.0)
[2018-05-27 14:18] LABS: BACTERIA,URINE FEW /HPF (None Seen); RBC,URINE NONE SEEN /HPF (0-3); WBC,URINE 0-3 /HPF (0-3)
[2018-05-27 14:19] LABS: MUCUS,URINE 1+ /LPF (None Seen)
[2018-05-27 17:45] VITALS: BP_SYST 133
[2018-05-27] MEDS ORDERED: METOCLOPRAMIDE HCL 10 MG/2 ML VIAL IVP PRN ×2 (18:00)
[2018-05-27] MEDS ORDERED: ONDANSETRON HCL 4 MG/2 ML VIAL IVP PRN ×2 (18:00)
[2018-05-27] MEDS ORDERED: ACETAMINOPHEN 325 MG TABLET PO PRN (18:00)
[2018-05-27] MEDS ORDERED: MORPHINE 4 MG/ML INJ. SYRINGE IVP PRN ×2 (18:00)
[2018-05-27 19:10] VITALS: BP_SYST 138
[2018-05-27] MEDS ORDERED: VANCOMYCIN HCL 1 GM/NS PREMIX 250 ML IV ONE (20:00)
[2018-05-27] MEDS: D5NS 1,000 ML IV SCH (21:33)
[2018-05-27] MEDS ORDERED: VANCOMYCIN HCL 1000 MG/VIAL IV ONE (21:36)
[2018-05-27 23:54] VITALS: BP_SYST 118
[2018-05-28 08:03] VITALS: BP_SYST 135
[2018-05-28] MEDS: D5NS 1,000 ML IV SCH ×2 (08:05→16:24)
[2018-05-28] MEDS ORDERED: GASTROGRAFIN 120 ML ONE (08:31)
[2018-05-28 12:00] VITALS: BP_SYST 149
[2018-05-28 16:10] VITALS: BP_SYST 142
[2018-05-28 20:23] VITALS: BP_SYST 130
[2018-05-28] MEDS ORDERED: VANCOMYCIN HCL 750 MG in NS 250 ML IV SCH (21:00)
[2018-05-28 23:42] VITALS: BP_SYST 122
[2018-05-29] MEDS: D5NS 1,000 ML IV SCH ×2 (02:23→10:38)
[2018-05-29 08:00] VITALS: BP_SYST 128
[2018-05-29 12:33] VITALS: BP_SYST 129
[2018-05-29 15:50] VITALS: BP_SYST 122
[2018-05-29 16:07] VITALS: BP_SYST 122
== END 2018-05-29 16:30 | disposition home or self-care (01) | DRG 390 ==
LOC: SED 11:56 → SMU 17:08
PROVIDERS: ADMIT Internal Medicine Hospice and Palliative Medicine; ATTEND Internal Medicine Hospice and Palliative Medicine
DX: K56.600 Partial intestinal obstruction, unspecified as to cause (principal); E78.5 Hyperlipidemia, unspecified; E11.9 Type 2 diabetes mellitus without complications; K21.9 Gastro-esophageal reflux disease without esophagitis; I10 Essential (primary) hypertension; Z88.0 Allergy status to penicillin; Z79.899 Other long term (current) drug therapy; Z85.42 Personal history of malignant neoplasm of other parts of uterus; Z90.710 Acquired absence of both cervix and uterus; Z92.3 Personal history of irradiation
CPT/HCPCS: 36415; 71045; 74250-TC; 80053; 81000-TC; 82550-TC; 83605; 83690-TC; 84484; 85025; 85610-TC; 85730-TC; 87040-TC; 93005; 96361; 96374; 96375; 99285; J2270; J2405; J3370; J7042; J7050; Q9963

== ENCOUNTER 2018-08-14 22:03 | Inpatient (IN) | payer BC, OTHER ==
[~2018-08-14] VITALS: Ht 144.8 cm; Wt 44.5 kg
[~2018-08-14 22:03] MED LIST changes: -NEU100 PO
[2018-08-14 22:19] VITALS: BP_SYST 186
--- NOTE | 2018-08-14 22:25 | NUR ---
Patient triaged and placed in waiting room. VSS and patient appears in no acute distress at this time. Accompanied by visitor, awaiting available bed, and MD notified of need for MSE.
[2018-08-14 23:01] LABS: BASOPHILS % (AUTO) 0.3 % (0.0-2.0); EOSINOPHILS % (AUTO) 0.3 % (0.0-4.0); HEMATOCRIT 38.1 % (36-48); HEMOGLOBIN 12.3 g/dL (12.0-16.0); LYMPHOCYTES # (AUTO) 1.5 K/uL (1.0-5.5); LYMPHOCYTES % (AUTO) 14.7 % (20.5-51.5); MEAN CORPUSCULAR HEMOGLOBIN 28 pg (27-31); MEAN CORPUSCULAR HGB CONC 32 % (32-36); MEAN CORPUSCULAR VOLUME 87 fL (79.0-98.0); MONOCYTES # (AUTO) 0.6 K/uL (0.0-1.0); MONOCYTES % (AUTO) 5.8 % (1.7-9.3); NEUTROPHILS # (AUTO) 7.9 K/uL (1.8-7.7); NEUTROPHILS % (AUTO) 78.9 % (40.0-70.0); PLATELET COUNT (AUTO) 242 K/uL (130-430); RED BLOOD CELL COUNT(AUTO) 4.37 MIL/uL (4.2-6.2); RED CELL DISTRIBUTION WIDTH 15.5 % (9.0-15.0)
[2018-08-14 23:11] LABS: CALCIUM 9.4 mg/dL (8.4-11.0); CREATININE 0.83 mg/dL (0.55-1.30); POTASSIUM 4.3 mmol/L (3.5-5.1)
[2018-08-14 23:17] LABS: ALBUMIN 3.3 g/dL (3.4-4.8); TOTAL BILIRUBIN 0.3 mg/dL (0.0-1.0)
--- NOTE | 2018-08-15 00:14 | NUR ---
Patient to ER bed 2 to gown for evaluation. Side rails up. Report given to TOBIAS WEEMS.
--- NOTE | 2018-08-15 00:15 | NUR ---
Pt is a 67 y/o female who comes into the ER c/o ab pain that started today. Pain is about 8/10 and was sudden onset and described as cramping. Pt has hx of IBS and SBO. Pt states she had a bowel movement today and is able to pass gas w/ no complications. Pt states her appetite has decreased a little. Otherwise pt denies fever, chills, back pain, GI bleed symptoms, melena, chest pain, SOB or any other complaints. Will cont to monitor.
--- NOTE | 2018-08-15 00:24 | NUR ---
ER Dr. Kebede at bedside examining patient.
[2018-08-15] MEDS ORDERED: NACL 0.9% 1,000 ML IV ONE (00:30)
[2018-08-15] MEDS ORDERED: ONDANSETRON HCL 4 MG/2 ML VIAL IVP ONE (00:30)
[2018-08-15] MEDS ORDERED: MORPHINE 4 MG/ML INJ. SYRINGE IVP ONE (00:30)
--- NOTE | 2018-08-15 01:11 | NUR ---
Pt to CT via gurney at this time. No signs of acute distress or discomfort noted.
--- NOTE | 2018-08-15 01:25 | NUR ---
Pt back from radiology via gurney. No s/s of discomfort. Will cont to monitor
--- NOTE | 2018-08-15 02:30 | NUR ---
Pt in bed w/ eyes closed resting comfortably, no s/s of acute distress or discomfort noted. Will cont to monitor.
--- NOTE | 2018-08-15 03:25 | NUR ---
Patient will be admitted to care of Dr. Ames. Admitted to [facility]. Will go to room 135. Belongings list completed. Summary report printed. Report will be given at bedside.
--- NOTE | 2018-08-15 03:25 | NUR ---
Transfer to [facility] surge room 135. IV present no signs or symptoms of infiltration.
--- NOTE | 2018-08-15 03:29 | NUR ---
ADMIT NOTE Received pt from ER to the floor with a diagnosis of small bowel obstruction. Admission process initiated. patient oriented to pain management, safety and call light-teach back done.
[2018-08-15 03:33] VITALS: BP_SYST 149
[2018-08-15] MEDS: NACL 0.9% 1,000 ML IV SCH ×2 (03:44→15:47)
--- NOTE | 2018-08-15 03:44 | NUR ---
Pain: Patient is complaining of abdominal pain. Administered PRN Morphine 2 MG as ordered. Education provided regarding indications, side effects, understanding verbalized. Call light is with patient. Safety, fall precautions in place. Will continue monitoring.
[2018-08-15] MEDS: MORPHINE 2 MG/ML INJ. SYRINGE IVP PRN ×3 (03:45→12:48)
--- NOTE | 2018-08-15 06:21 | NUR ---
Closing note: Patient is resting in bed, no distress noted. Even and unlabored breathing on room air. IV fluids infusing well to right AC IV site. All needs met. Safety, fall precautions in place. Will endorse to dayshidwayne RN.
[2018-08-15 07:48] VITALS: BP_SYST 131
--- NOTE | 2018-08-15 08:00 | NUR ---
Note Pt resting in bed with bucket for emesis at pt's side. No SOB/resp distress or pain/discomfort noted at this time. IV in right hand intact and patent infusing IVF's well at this time. Pt is NPO at this time. Call light within reach.
[2018-08-15] MEDS ORDERED: ONDANSETRON HCL 4 MG/2 ML VIAL IVP PRN (09:00)
[2018-08-15] MEDS ORDERED: ALBUTEROL SULFATE 0.083% 2.5 MG/3 ML VIAL.NEB INH PRN (09:00)
[2018-08-15 09:03] VITALS: BP_SYST 131
--- NOTE | 2018-08-15 09:15 | NUR ---
Note Pt off the floor via wheelchair to Radiology dept for Small Bowel series at this time. IVF's were saline locked at this time.
[2018-08-15] MEDS ORDERED: GASTROGRAFIN 120 ML ONE (09:16)
[2018-08-15] MEDS: ATORVASTATIN 20 MG TABLET PO SCH (11:18)
[2018-08-15] MEDS: amLODIPine BESYLATE 5 MG TABLET PO SCH (11:18)
--- NOTE | 2018-08-15 11:30 | NUR ---
Note Pt returned to floor around 115am. Pt stated she had an episode of emesis in Radiology dept. Requested and received Zofran IVP at this time. Pt refused PO medications at this time due to nauseated feelings at this time. Radiology came to bedside at this time to do part 2 of Small Bowel series. Pt's at bedside at this time. No needs noted at this time. IVF's were restarted and now infusing to hydrate patient at this time. No needs noted. Call light within reach.
[2018-08-15 11:55] LABS: BASOPHILS % (AUTO) 0.1 % (0.0-2.0); EOSINOPHILS % (AUTO) 0.1 % (0.0-4.0); HEMATOCRIT 36.3 % (36-48); HEMOGLOBIN 11.7 g/dL (12.0-16.0); LYMPHOCYTES # (AUTO) 0.9 K/uL (1.0-5.5); LYMPHOCYTES % (AUTO) 11.7 % (20.5-51.5); MEAN CORPUSCULAR HEMOGLOBIN 28 pg (27-31); MEAN CORPUSCULAR HGB CONC 32 % (32-36); MEAN CORPUSCULAR VOLUME 87 fL (79.0-98.0); MONOCYTES # (AUTO) 0.4 K/uL (0.0-1.0); MONOCYTES % (AUTO) 4.7 % (1.7-9.3); NEUTROPHILS # (AUTO) 6.8 K/uL (1.8-7.7); NEUTROPHILS % (AUTO) 83.4 % (40.0-70.0); PLATELET COUNT (AUTO) 224 K/uL (130-430); RED BLOOD CELL COUNT(AUTO) 4.16 MIL/uL (4.2-6.2); RED CELL DISTRIBUTION WIDTH 15.7 % (9.0-15.0); WHITE BLOOD COUNT (AUTO) 8.1 K/uL (4.8-10.8)
[2018-08-15 12:00] VITALS: BP_SYST 128
[2018-08-15 12:11] LABS: ALBUMIN 2.9 g/dL (3.4-4.8); CALCIUM 8.4 mg/dL (8.4-11.0); CREATININE 0.77 mg/dL (0.55-1.30); POTASSIUM 4.1 mmol/L (3.5-5.1); TOTAL BILIRUBIN 0.4 mg/dL (0.0-1.0)
--- NOTE | 2018-08-15 12:35 | NUR ---
Note Pt resting in bed, states nausea feeling has subsided at this time. Pt is NPO all day due to severe abdominal pain. Pt's at bedside assisting pt with needs and care. No needs noted at this time. Call light within reach.
--- NOTE | 2018-08-15 14:50 | NUR ---
Note Pt requested Dr Solis be called - pt feeling very uncomfortable - nauseated and feelings of abdominal cramping. Cool wash cloths applied to forehead and neck for feelings of warmth and hot at this time. Call light within reach.
--- NOTE | 2018-08-15 14:51 | NUR ---
PAGED DR FLYNN FOR MEDICATION ORDERS
[2018-08-15] MEDS ORDERED: METOCLOPRAMIDE HCL 10 MG/2 ML VIAL IVP PRN (15:00)
[2018-08-15] MEDS ORDERED: PANTOPRAZOLE SODIUM 40 MG/VIAL (PROTONIX) IVP ONE (15:00)
--- NOTE | 2018-08-15 16:30 | NUR ---
CONSULT SURGERY SBO DR NELSON [phone] S/W [facility] OFFICE
[2018-08-15 16:31] VITALS: BP_SYST 162
--- NOTE | 2018-08-15 16:35 | NUR ---
Note Dr Solis called back orders received for pain/nausea/stomach cramping and consult for GI surgery. Medications given as scheduled and requested at this time. Pt unable to have bowel movement all shift - only passing flatus at this time in BSC. Pt's still at bedside. Call light within reach.
[2018-08-15] MEDS ORDERED: MORPHINE 4 MG/ML INJ. SYRINGE IVP PRN (16:45)
--- NOTE | 2018-08-15 18:30 | NUR ---
Note Pt drowsy and sleepy at this time. No SOB/resp distress or severe abdominal pain/discomfort noted at this time. Pt was checked on q1' and PRN all shift for needs and care. IV in right AC intact and patent infusing IVF's well. Left AC IV intact and patent as well at this time. No SOB/resp distress noted at this time. Call light within reach.
--- NOTE | 2018-08-15 19:46 | NUR ---
Initial note: Received report from aislinn RN. Patient is awake, no acute distress. Denies pain or nausea at this time. Alert and oriented x4. tolerating room air. IV fluids infusing well to right AC IV site. Call light with patient. Safety, fall precautions in place. Bedside commode in place. Will continue with plan of care.
--- NOTE | 2018-08-15 20:05 | NUR ---
Radiology at bedside: textile science technician at bedside performing final x-ray for SBFT. Patient tolerated well.
[2018-08-15 20:30] VITALS: BP_SYST 134
--- NOTE | 2018-08-15 21:01 | NUR ---
Bowel movement: Patient reported having a bowel movement at this time. She states that her BM was solid at first, and was then followed by loose stool. Patient denies any pain or nausea at this time. Will continue to monitor.
[2018-08-15] MEDS: PANTOPRAZOLE SODIUM 40 MG/VIAL (PROTONIX) IVP SCH (21:24)
--- NOTE | 2018-08-16 00:11 | NUR ---
Rounds: Patient is asleep in bed, no acute distress. Even and unlabored breathing on room air. IV fluids infusing well. Call light with patient. Will continue monitoring.
[2018-08-16 00:55] VITALS: BP_SYST 147
[2018-08-16] MEDS: NACL 0.9% 1,000 ML IV SCH ×3 (01:54→20:39)
--- NOTE | 2018-08-16 03:08 | NUR ---
Rounds: Patient is awake, no acute distress noted. Denies pain, nausea, SOB. Tolerating room air. IV fluids infusing well to right AC IV site. Left AC IV site D/C'd per patient request. Call light with patient. Will continue to monitor.
[2018-08-16 06:03] LABS: BASOPHILS % (AUTO) 0.2 % (0.0-2.0); EOSINOPHILS % (AUTO) 0.2 % (0.0-4.0); HEMATOCRIT 30.4 % (36-48); HEMOGLOBIN 9.8 g/dL (12.0-16.0); LYMPHOCYTES # (AUTO) 1.1 K/uL (1.0-5.5); LYMPHOCYTES % (AUTO) 17.4 % (20.5-51.5); MEAN CORPUSCULAR HEMOGLOBIN 28 pg (27-31); MEAN CORPUSCULAR HGB CONC 32 % (32-36); MEAN CORPUSCULAR VOLUME 88 fL (79.0-98.0); MONOCYTES # (AUTO) 0.6 K/uL (0.0-1.0); MONOCYTES % (AUTO) 8.7 % (1.7-9.3); NEUTROPHILS # (AUTO) 4.8 K/uL (1.8-7.7); NEUTROPHILS % (AUTO) 73.5 % (40.0-70.0); PLATELET COUNT (AUTO) 195 K/uL (130-430); RED BLOOD CELL COUNT(AUTO) 3.46 MIL/uL (4.2-6.2); RED CELL DISTRIBUTION WIDTH 15.9 % (9.0-15.0); WHITE BLOOD COUNT (AUTO) 6.6 K/uL (4.8-10.8)
--- NOTE | 2018-08-16 06:21 | NUR ---
Closing note: Patient is sleeping in bed. No distress noted. Tolerating room air. IV fluids infusing well. All needs met. Safety, fall precautions in place. Will endorse to daysbriseida RN.
--- NOTE | 2018-08-16 07:15 | NUR ---
received report at the bedside. patient aaox 4. breathing even and unlabored. lungs bilaterally clear. abdomen soft and non distended. iv access on the rt ac #20 with Normal Saline at 100cc/hr infusing on well. bed in low position. alarmed and locked. call lights within reach. instructed to call for assistance. maintained safety measures.
[2018-08-16 07:40] LABS: ALBUMIN 2.3 g/dL (3.4-4.8); CALCIUM 7.4 mg/dL (8.4-11.0); CREATININE 0.71 mg/dL (0.55-1.30); POTASSIUM 3.6 mmol/L (3.5-5.1); TOTAL BILIRUBIN 0.4 mg/dL (0.0-1.0)
[2018-08-16 08:19] VITALS: BP_SYST 134
--- NOTE | 2018-08-16 09:00 | NUR ---
due medication given as ordered. continue to monitor patients status.
[2018-08-16] MEDS: amLODIPine BESYLATE 5 MG TABLET PO SCH (09:03)
[2018-08-16] MEDS: ATORVASTATIN 20 MG TABLET PO SCH (09:08)
[2018-08-16] MEDS: PANTOPRAZOLE SODIUM 40 MG/VIAL (PROTONIX) IVP SCH ×2 (09:09→20:39)
--- NOTE | 2018-08-16 10:00 | NUR ---
Dr Sanchez called regarding the status of the patient and made order from full liquid to clear liquid at this time.
--- NOTE | 2018-08-16 10:25 | NUR ---
patient still lying in bed. no pain nor acute distress noted.
[2018-08-16 12:00] VITALS: BP_SYST 125
--- NOTE | 2018-08-16 13:55 | NUR ---
Dietitian Recommendations *Recommend continuing clear liquid diet per MD orders. *If/when medically appropriate, advance diet. Please see Nutritional Assessment for details. MELODY GLASGOW
--- NOTE | 2018-08-16 15:00 | NUR ---
PATIENT RESTING AND STABLE.
[2018-08-16 16:58] VITALS: BP_SYST 130
--- NOTE | 2018-08-16 17:00 | NUR ---
PATIENT REQUEST TO HAVE JELLO AND APPLE JUICE. AND ICE PACKS.
--- NOTE | 2018-08-16 18:08 | NUR ---
PATIENT TOLERATING CLEAR LIQUID DIET. AT THE BEDSIDE. NO NAUSEA NOR PAIN NOTED.
--- NOTE | 2018-08-16 18:47 | NUR ---
closing notes: patient watching tv. resting. verbalized feels much better, after reglan iv. at the bedside.all needs are met and attended. breathing even and unlabored. abdomen soft and non distended. bed in low position, alarmed and locked. fall/safety measures maintained. will continue to monitor patients status. endorsed to incoming nurse.
--- NOTE | 2018-08-16 19:20 | NUR ---
Initial Note Received patient awake, alert and oriented with family at the bedside. NO SOB noted. Denies any pain or n/v at this time. VS taken and is stable. IVF infusing. Skin intact and no peripheral edema noted. Ambulates to the commode or bathroom by herself with steady gait. Care and monitoring will be provided per protocol. Call light within reach. Bed alarm off per patient's request. Bed at lowest position at all times. Needs attended. Repositions self. Kept warm and comfortable.
[2018-08-16 20:00] VITALS: BP_SYST 122
--- NOTE | 2018-08-16 20:39 | NUR ---
RN Note Due IV med given per patient's request. IVF bag changed. No complaints at this time. Needs attended.
--- NOTE | 2018-08-16 23:00 | NUR ---
RN Note Patient awake, watching TV. She just went to the bathroom. No complaints. Kept warm and comfortable.
--- NOTE | 2018-08-17 01:00 | NUR ---
RN Note Patient sleeping at this time. No SOB or grimacing noted. IVF infusing.
[2018-08-17 01:54] VITALS: BP_SYST 120
--- NOTE | 2018-08-17 03:00 | NUR ---
RN Note Asleep, moves occasionally. No distress noted. IVF infusing.
[2018-08-17] MEDS: NACL 0.9% 1,000 ML IV SCH (05:27)
[2018-08-17 05:40] LABS: BASOPHILS % (AUTO) 0.2 % (0.0-2.0); EOSINOPHILS % (AUTO) 0.6 % (0.0-4.0); HEMATOCRIT 30.4 % (36-48); HEMOGLOBIN 9.8 g/dL (12.0-16.0); LYMPHOCYTES # (AUTO) 0.9 K/uL (1.0-5.5); LYMPHOCYTES % (AUTO) 13.1 % (20.5-51.5); MEAN CORPUSCULAR HEMOGLOBIN 28 pg (27-31); MEAN CORPUSCULAR HGB CONC 32 % (32-36); MEAN CORPUSCULAR VOLUME 88 fL (79.0-98.0); MONOCYTES # (AUTO) 0.4 K/uL (0.0-1.0); MONOCYTES % (AUTO) 6.2 % (1.7-9.3); NEUTROPHILS # (AUTO) 5.3 K/uL (1.8-7.7); NEUTROPHILS % (AUTO) 79.9 % (40.0-70.0); PLATELET COUNT (AUTO) 178 K/uL (130-430); RED BLOOD CELL COUNT(AUTO) 3.47 MIL/uL (4.2-6.2); RED CELL DISTRIBUTION WIDTH 15.8 % (9.0-15.0); WHITE BLOOD COUNT (AUTO) 6.7 K/uL (4.8-10.8)
[2018-08-17 06:04] LABS: ALBUMIN 2.2 g/dL (3.4-4.8); CREATININE 0.55 mg/dL (0.55-1.30); POTASSIUM 3.4 mmol/L (3.5-5.1); TOTAL BILIRUBIN 0.3 mg/dL (0.0-1.0)
--- NOTE | 2018-08-17 06:28 | NUR ---
End Note Afebrile. VS stable. No complain of pain, SOB or n/v throughout the night. Ambulates well with steady gait. IVF infusing. AM labs today. Tolerated clear liquids. Care and monitoring provided per protocol. Call light within reach. Bed alarm off per patient's request. Bed at lowest position at all times. Needs attended. Kept warm and comfortable.
--- NOTE | 2018-08-17 06:40 | NUR ---
Critical lab-Ca=6.9 from 7.4 Mickey from lab called and notified me of Calcium level of 6.9 from [address] Ames, awaiting call back.
[2018-08-17 06:43] LABS: CALCIUM 6.9 mg/dL (8.4-11.0)
--- NOTE | 2018-08-17 06:47 | NUR ---
ADRIANA MENDEZ PAGED DR. FLYNN (DR. MUNOZ KENO CLERK) REGARDING CRITICAL LABS. I SPOKE WITH NOELLE.
--- NOTE | 2018-08-17 07:12 | NUR ---
received patient report at the bedside. patient aaox 4. breathing even and unlabored. abdomen soft and non distended. has iv access on the rt ac #20 w/Normal Saline at 100cc/hr infusing on well. bed in low position. alarmed and locked. call lights within reach. instructed to call for assistance.
[2018-08-17 08:02] VITALS: BP_SYST 124
--- NOTE | 2018-08-17 08:03 | NUR ---
PATIENT STILL VERY SLEEPY. VITALS SIGNS STABLE AND DOCUMENTED. NO PAIN NOR ACUTE DISTRESS NOTED.
[2018-08-17] MEDS: ATORVASTATIN 20 MG TABLET PO SCH (08:23)
[2018-08-17] MEDS: amLODIPine BESYLATE 5 MG TABLET PO SCH (08:24)
--- NOTE | 2018-08-17 09:00 | NUR ---
due medication given.
--- NOTE | 2018-08-17 09:10 | NUR ---
verbalized wants to walk in the hallway x 3. without sob nor pain noted.
--- NOTE | 2018-08-17 09:51 | NUR ---
DR FLYNN MADE AWARE OF THE CALCIUM LEVEL. BUT NO ORDER MADE.
--- NOTE | 2018-08-17 09:51 | NUR ---
oral care done by herself.
[2018-08-17] MEDS: PANTOPRAZOLE SODIUM 40 MG/VIAL (PROTONIX) IVP SCH (10:53)
--- NOTE | 2018-08-17 10:55 | NUR ---
protonix 40 mg iv given.
[2018-08-17 12:00] VITALS: BP_SYST 122
--- NOTE | 2018-08-17 12:40 | NUR ---
patient went to the bathroom and had voided. verbalized wants to start eating lunch mechanical soft diet.
--- NOTE | 2018-08-17 13:06 | NUR ---
still eating her lunch tray at this time little by little. she said i am guarding my stomach for any stomach upset. assists on adls.
[2018-08-17 14:20] VITALS: BP_SYST 137
--- NOTE | 2018-08-17 14:20 | NUR ---
still lying in bed. but stable. awaiting for the to come and pick her up.
--- NOTE | 2018-08-17 14:30 | NUR ---
discharged instruction given to the patient and signed. understand the medication indication, dose, frequency, side effects. and follow up for primary care doctor. scdh i d band removed. iv access removed. refused to be wheeled to the lobby. accompaniied by the . patient stable.
--- NOTE | 2018-08-17 15:35 | NUR ---
patient left in stable condition. to home.
[2018-08-19] MEDS ORDERED: PRO40 PO (22:58)
== END 2018-08-17 13:35 | disposition home or self-care (01) | DRG 390 ==
LOC: SED 22:03 → SMU 08-15 03:09
PROVIDERS: ADMIT Internal Medicine; ATTEND Internal Medicine
DX: K56.600 Partial intestinal obstruction, unspecified as to cause (principal); E78.5 Hyperlipidemia, unspecified; I10 Essential (primary) hypertension; E11.9 Type 2 diabetes mellitus without complications; K21.9 Gastro-esophageal reflux disease without esophagitis; K58.9 Irritable bowel syndrome, unspecified; Z85.42 Personal history of malignant neoplasm of other parts of uterus; Z92.3 Personal history of irradiation; Z88.0 Allergy status to penicillin; Z79.899 Other long term (current) drug therapy; Z90.710 Acquired absence of both cervix and uterus; Z98.891 History of uterine scar from previous surgery
CPT/HCPCS: 36415; 74250-TC; 80053; 83690-TC; 85025; 94760; 96361; 96374; 96375; 99285; C9113; J2270; J2405; J2765; J7030; Q9963

== ENCOUNTER 2019-02-01 17:36 | Emergency (ER) | payer BC ==
[~2019-02-01] VITALS: Ht 152.4 cm; Wt 43.5 kg
[~2019-02-01 17:36] MED LIST changes: +PRO40 PO; -RANI300T4 PO
[2019-02-01 17:40] VITALS: BP_SYST 155
[2019-02-01 18:49] LABS: BASOPHILS % (AUTO) 0.4 % (0.0-2.0); EOSINOPHILS % (AUTO) 0.1 % (0.0-4.0); HEMATOCRIT 40.6 % (36-48); HEMOGLOBIN 13.3 g/dL (12.0-16.0); LYMPHOCYTES % (AUTO) 11.6 % (20.5-51.5); MEAN CORPUSCULAR HEMOGLOBIN 29 pg (27-31); MEAN CORPUSCULAR HGB CONC 33 % (32-36); MEAN CORPUSCULAR VOLUME 89 fL (79.0-98.0); MONOCYTES # (AUTO) 0.4 K/uL (0.0-1.0); MONOCYTES % (AUTO) 4.3 % (1.7-9.3); NEUTROPHILS # (AUTO) 7.5 K/uL (1.8-7.7); NEUTROPHILS % (AUTO) 83.6 % (40.0-70.0); PLATELET COUNT (AUTO) 241 K/uL (130-430); RED BLOOD CELL COUNT(AUTO) 4.55 MIL/uL (4.2-6.2); RED CELL DISTRIBUTION WIDTH 14.6 % (9.0-15.0); WHITE BLOOD COUNT (AUTO) 8.9 K/uL (4.8-10.8)
[2019-02-01 19:17] LABS: CALCIUM 8.9 mg/dL (8.4-11.0); CREATININE 0.71 mg/dL (0.55-1.30); POTASSIUM 4.3 mmol/L (3.5-5.1)
[2019-02-01 19:20] LABS: ALBUMIN 3.7 g/dL (3.4-4.8); PROTHROMBIN TIME 10.1 SECS (9.5-12.5); TOTAL BILIRUBIN 0.4 mg/dL (0.0-1.0)
--- NOTE | 2019-02-01 19:32 | NUR ---
Patient to ER bed 2 to gown for evaluation. Side rails up. Report given to Shukri WEEMS.
--- NOTE | 2019-02-01 19:35 | NUR ---
68 y/o female presents to ER for c/o of ABD pain accompanied with nausea that started today around 11 AM. Pt states she has had this before but not for a long time. Pt reports a Hx of SBO repair, and removal of SCAR Tissue Sx, done by Dr Sanchez. Pt also has Hx of HTN. No other significant Hx noted. Will continue to monitor.
--- NOTE | 2019-02-01 20:23 | NUR ---
Dr. Trevino at bedside examining Pt.
[2019-02-01] MEDS ORDERED: NACL 0.9% 1,000 ML IV ONE (20:27)
[2019-02-01 21:00] LABS: BILIRUBIN,URINE NEGATIVE (NEGATIVE); BLOOD, URINE NEGATIVE (NEGATIVE); CLARITY/URINE CLEAR (CLEAR); COLOR,URINE YELLOW (YELLOW); GLUCOSE,URINE NEGATIVE (NEGATIVE); KETONES,URINE TRACE (NEGATIVE); LEUKOCYTE ESTERASE ,URINE NEGATIVE (NEGATIVE); NITRITE, URINE NEGATIVE (NEGATIVE); PROTEIN URINE NEGATIVE (NEGATIVE); UROBILINOGEN,URINE 0.2 (0.2-1.0)
[2019-02-02 01:00] VITALS: BP_SYST 135
--- NOTE | 2019-02-02 01:00 | NUR ---
Patient given written and verbal discharge instructions and verbalizes understanding. ER MD discussed with patient the results and treatment provided. Patient in stable condition. ID arm band removed. IV catheter removed intact and dressing applied, no active bleeding. Rx of Zofran given. Patient educated on pain management and to follow up with PMD. Pain Scale 0/10. Opportunity for questions provided and answered. Medication side effect fact sheet provided.
== END 2019-02-02 01:00 | disposition home or self-care (01) ==
LOC: SED 17:36
DX: K52.9 Noninfective gastroenteritis and colitis, unspecified (principal); E11.9 Type 2 diabetes mellitus without complications; K21.9 Gastro-esophageal reflux disease without esophagitis; I10 Essential (primary) hypertension; Z90.710 Acquired absence of both cervix and uterus; Z88.0 Allergy status to penicillin
CPT/HCPCS: 36415; 74021; 74176; 80053; 81003; 82150; 83690; 85025; 85610; 85730; 96360; 99284; J7030

== ENCOUNTER 2019-03-18 08:24 | Inpatient (IN) | payer BC ==
[~2019-03-18] VITALS: Ht 147.3 cm; Wt 45.4 kg
[2019-03-18 08:30] VITALS: BP_SYST 161
[2019-03-18] MEDS ORDERED: NACL 0.9% 1,000 ML IV ONE (08:32)
[2019-03-18] MEDS ORDERED: ONDANSETRON HCL 4 MG/2 ML VIAL IVP ONE (08:45)
[2019-03-18] MEDS ORDERED: MORPHINE 2 MG/ML INJ. SYRINGE IVP ONE (08:45)
[2019-03-18 09:31] LABS: BILIRUBIN,URINE NEGATIVE (NEGATIVE); BLOOD, URINE NEGATIVE (NEGATIVE); CLARITY/URINE SL CLOUDY (CLEAR); COLOR,URINE YELLOW (YELLOW); GLUCOSE,URINE NEGATIVE (NEGATIVE); KETONES,URINE 2+ (NEGATIVE); LEUKOCYTE ESTERASE ,URINE NEGATIVE (NEGATIVE); NITRITE, URINE NEGATIVE (NEGATIVE); PH,URINE 8.5 (5.0-8.0); PROTEIN URINE TRACE (NEGATIVE); UROBILINOGEN,URINE 0.2 (0.2-1.0)
[2019-03-18 09:33] LABS: BASOPHILS % (AUTO) 0.3 % (0.0-2.0); HEMATOCRIT 42.5 % (36-48); HEMOGLOBIN 14.4 g/dL (12.0-16.0); LYMPHOCYTES # (AUTO) 0.6 K/uL (1.0-5.5); LYMPHOCYTES % (AUTO) 4.7 % (20.5-51.5); MEAN CORPUSCULAR HEMOGLOBIN 30 pg (27-31); MEAN CORPUSCULAR HGB CONC 34 % (32-36); MEAN CORPUSCULAR VOLUME 88 fL (79.0-98.0); MONOCYTES # (AUTO) 0.2 K/uL (0.0-1.0); MONOCYTES % (AUTO) 1.6 % (1.7-9.3); NEUTROPHILS # (AUTO) 11.7 K/uL (1.8-7.7); NEUTROPHILS % (AUTO) 93.4 % (40.0-70.0); PLATELET COUNT (AUTO) 250 K/uL (130-430); RED BLOOD CELL COUNT(AUTO) 4.84 MIL/uL (4.2-6.2); RED CELL DISTRIBUTION WIDTH 14.5 % (9.0-15.0); WHITE BLOOD COUNT (AUTO) 12.6 K/uL (4.8-10.8)
[2019-03-18 09:39] LABS: BACTERIA,URINE MODERATE /HPF (None Seen); RBC,URINE 0-3 /HPF (0-3); WBC,URINE 0-3 /HPF (0-3)
[2019-03-18 09:40] LABS: URINE AMORPHOUS PHOSPHATES 2+ /HPF (None Seen)
[2019-03-18 09:46] LABS: ALBUMIN 3.8 g/dL (3.4-4.8); CALCIUM 9.8 mg/dL (8.4-11.0); CREATININE 1.03 mg/dL (0.55-1.30); POTASSIUM 3.8 mmol/L (3.5-5.1); TOTAL BILIRUBIN 0.4 mg/dL (0.0-1.0)
[2019-03-18] MEDS ORDERED: NACL 0.9% 2,000 ML IV ONE (11:15)
[2019-03-18] MEDS ORDERED: MORPHINE 2 MG/ML INJ. SYRINGE IVP PRN (11:45)
[2019-03-18] MEDS ORDERED: ONDANSETRON HCL 4 MG/2 ML VIAL IVP PRN (11:45)
[2019-03-18] MEDS ORDERED: ACETAMINOPHEN 325 MG TABLET PO PRN (11:45)
[2019-03-18] MEDS ORDERED: GASTROGRAFIN 120 ML ONE (12:17)
[2019-03-18 12:25] VITALS: BP_SYST 129
[2019-03-18 16:31] VITALS: BP_SYST 141
[2019-03-18 19:15] VITALS: BP_SYST 143
[2019-03-18 20:00] VITALS: BP_SYST 144
[2019-03-19 00:29] VITALS: BP_SYST 135
[2019-03-19 00:43] VITALS: BP_SYST 123
[2019-03-19 07:03] LABS: BASOPHILS % (AUTO) 0.1 % (0.0-2.0); EOSINOPHILS % (AUTO) 0.1 % (0.0-4.0); HEMOGLOBIN 10.4 g/dL (12.0-16.0); LYMPHOCYTES % (AUTO) 12.3 % (20.5-51.5); MEAN CORPUSCULAR HEMOGLOBIN 29 pg (27-31); MEAN CORPUSCULAR HGB CONC 33 % (32-36); MEAN CORPUSCULAR VOLUME 89 fL (79.0-98.0); MONOCYTES # (AUTO) 0.6 K/uL (0.0-1.0); MONOCYTES % (AUTO) 7.6 % (1.7-9.3); NEUTROPHILS # (AUTO) 6.7 K/uL (1.8-7.7); NEUTROPHILS % (AUTO) 79.9 % (40.0-70.0); PLATELET COUNT (AUTO) 194 K/uL (130-430); RED BLOOD CELL COUNT(AUTO) 3.59 MIL/uL (4.2-6.2); RED CELL DISTRIBUTION WIDTH 14.9 % (9.0-15.0); WHITE BLOOD COUNT (AUTO) 8.3 K/uL (4.8-10.8)
[2019-03-19 07:07] LABS: ALBUMIN 2.7 g/dL (3.4-4.8); CALCIUM 8.4 mg/dL (8.4-11.0); CREATININE 0.83 mg/dL (0.55-1.30); POTASSIUM 3.8 mmol/L (3.5-5.1); TOTAL BILIRUBIN 0.3 mg/dL (0.0-1.0)
[2019-03-19 07:25] VITALS: BP_SYST 145
[2019-03-19] MEDS ORDERED: PANTOPRAZOLE SODIUM 40 MG/VIAL (PROTONIX) IVP SCH (09:00)
[2019-03-19] MEDS ORDERED: PANTOPRAZOLE SODIUM 40 MG TAB PO SCH (09:00)
[2019-03-19] MEDS ORDERED: ATORVASTATIN 20 MG TABLET PO SCH (09:00)
[2019-03-19] MEDS ORDERED: amLODIPine BESYLATE 5 MG TABLET PO SCH (09:00)
[2019-03-19 12:03] VITALS: BP_SYST 125
[2019-03-19 16:33] VITALS: BP_SYST 132
[2019-03-19 19:15] VITALS: BP_SYST 143
[2019-03-20 00:21] VITALS: BP_SYST 124
[2019-03-20 12:17] VITALS: BP_SYST 130
[2019-03-20 12:18] VITALS: BP_SYST 130
[2019-03-20 12:43] VITALS: BP_SYST 130
== END 2019-03-20 14:00 | disposition home or self-care (01) | DRG 389 ==
LOC: SED 08:24 → SMU 11:40
PROVIDERS: ADMIT Internal Medicine Hospice and Palliative Medicine; ATTEND Internal Medicine Hospice and Palliative Medicine
DX: K56.600 Partial intestinal obstruction, unspecified as to cause (principal); R65.10 Systemic inflammatory response syndrome (SIRS) of non-infectious origin without acute organ dysfunction; Z92.3 Personal history of irradiation; Z79.899 Other long term (current) drug therapy; Z85.42 Personal history of malignant neoplasm of other parts of uterus; Z88.0 Allergy status to penicillin; Z83.3 Family history of diabetes mellitus; Z82.49 Family history of ischemic heart disease and other diseases of the circulatory system
CPT/HCPCS: 36415; 71045; 74250-TC; 80053; 81000-TC; 82150-TC; 82550-TC; 83605; 83690-TC; 83880; 84484; 85025; 85610-TC; 85730-TC; 87040-TC; 87086; 96361; 96365; 96375; 99285; C9113; J1956; J2270; J2405; Q9963

== ENCOUNTER 2020-01-04 20:08 | Inpatient (IN) | payer BC, SELFPAY ==
[~2020-01-04] VITALS: Ht 147.3 cm; Wt 46.3 kg
[~2020-01-04 20:08] MED LIST changes: +GABA-331 PO
[2020-01-04 20:24] VITALS: BP_SYST 139
--- NOTE | 2020-01-04 20:48 | NUR ---
Placed in room 01 . Placed on monitor tech, blood pressure machine and pulse oximeter. To gown for exam. Side rails up. Report given to FAUSTINA Bettencourt
--- NOTE | 2020-01-04 20:55 | NUR ---
PT PRESENTS FROM HOME WITH C/O N/V STARTING YESTERDAY. PT HAS A HX OF SMALL BOWEL SURGURY IN 2011. DENIES ABD PAIN, DIARRHEA. PT IS AAOX4, AMBULATORY AND V/S STABLE
[2020-01-04] MEDS ORDERED: ONDANSETRON HCL 4 MG/2 ML VIAL IVP ONE (21:00)
--- NOTE | 2020-01-04 21:20 | NUR ---
# 22 gauge angiocath placed to LFA. Use of asceptic technique. Opsite placed over site. Blood return noted. Blood for lab drawn from site. Flushed with 10 cc of normal saline. No evidence of infiltration noted. Patient tolerated well.
--- NOTE | 2020-01-04 21:35 | NUR ---
ER DR. LUJAN AT THE BEDSIDE EVALUATING PT
--- NOTE | 2020-01-04 21:57 | NUR ---
Patient transported to radiology via WC, accompanied by STAFF.
[2020-01-04] MEDS ORDERED: DIPHENHYDRAMINE INJ 50 MG/ML VIAL IVP ONE (22:00)
[2020-01-04] MEDS ORDERED: NACL 0.9% 1,000 ML IV ONE (22:00)
[2020-01-04] MEDS ORDERED: MORPHINE 4 MG/ML INJ. SYRINGE IV ONE (22:00)
[2020-01-04 22:03] LABS: BILIRUBIN,URINE NEGATIVE (NEGATIVE); BLOOD, URINE NEGATIVE (NEGATIVE); CLARITY/URINE CLEAR (CLEAR); COLOR,URINE YELLOW (YELLOW); GLUCOSE,URINE NEGATIVE (NEGATIVE); KETONES,URINE TRACE (NEGATIVE); LEUKOCYTE ESTERASE ,URINE NEGATIVE (NEGATIVE); NITRITE, URINE NEGATIVE (NEGATIVE); PH,URINE 5.5 (5.0-8.0); PROTEIN URINE NEGATIVE (NEGATIVE); UROBILINOGEN,URINE 0.2 (0.2-1.0)
[2020-01-04 22:06] LABS: BASOPHILS # (AUTO) 0.1 K/uL (0.0-0.2); BASOPHILS % (AUTO) 0.3 % (0.0-2.0); EOSINOPHILS % (AUTO) 0.1 % (0.0-4.0); HEMOGLOBIN 13.8 g/dL (12.0-16.0); LYMPHOCYTES # (AUTO) 1.5 K/uL (1.0-5.5); LYMPHOCYTES % (AUTO) 8.4 % (20.5-51.5); MEAN CORPUSCULAR HEMOGLOBIN 29 pg (27-31); MEAN CORPUSCULAR HGB CONC 33 % (32-36); MEAN CORPUSCULAR VOLUME 89 fL (79.0-98.0); MONOCYTES # (AUTO) 0.8 K/uL (0.0-1.0); MONOCYTES % (AUTO) 4.4 % (1.7-9.3); NEUTROPHILS # (AUTO) 15.5 K/uL (1.8-7.7); NEUTROPHILS % (AUTO) 86.8 % (40.0-70.0); PLATELET COUNT (AUTO) 255 K/uL (130-430); RED BLOOD CELL COUNT(AUTO) 4.71 MIL/uL (4.2-6.2); RED CELL DISTRIBUTION WIDTH 14.6 % (9.0-15.0); WHITE BLOOD COUNT (AUTO) 17.9 K/uL (4.8-10.8)
[2020-01-04 22:13] LABS: ANION GAP 12 (5-15); CALCIUM 9.5 mg/dL (8.4-11.0); CHLORIDE 104 mmol/L (98-107); CREATININE 0.88 mg/dL (0.55-1.30); GLUCOSE 155 mg/dL (70-99); POTASSIUM 3.9 mmol/L (3.5-5.1); SODIUM SERUM 140 mmol/L (136-145); UREA NITROGEN, BLOOD 23 mg/dL (8-21)
[2020-01-04 22:19] LABS: ALANINE AMINOTRANSFERASE 56 U/L (12-78); ALBUMIN 4.1 g/dL (3.4-4.8); ASPARTATE AMINOTRANSFERASE 38 U/L (10-37); LIPASE 237 U/L (73-393); TOTAL BILIRUBIN 0.4 mg/dL (0.0-1.0)
--- NOTE | 2020-01-04 23:59 | NUR ---
RECEIVED ADMIT ORDERS FROM DR. MUNOZ.
--- NOTE | 2020-01-05 00:01 | NUR ---
SPOKE WITH BEADING MACHINE OPERATOR, RIKI, TO REQUEST [facility] BED.
--- NOTE | 2020-01-05 00:03 | NUR ---
COVID SWAB COLLECTED AND SENT TO LAB
[2020-01-05] MEDS ORDERED: LIP20 PO (00:40)
[2020-01-05] MEDS ORDERED: NOR10 PO (00:40)
[2020-01-05] MEDS ORDERED: NEU300 PO (00:40)
[2020-01-05] MEDS ORDERED: PANT20TA2 PO (00:40)
--- NOTE | 2020-01-05 00:42 | NUR ---
Medication reconciliation completed with information provided by FAUSTINA APPLE. Any prior medication reconciliation on file was reviewed and corrected.
[2020-01-05] MEDS ORDERED: NALOXONE HCL 0.4 MG/ML AMP (NARCAN) IVP PRN (01:00)
[2020-01-05] MEDS ORDERED: ONDANSETRON HCL 4 MG/2 ML VIAL IVP PRN (01:00)
[2020-01-05] MEDS ORDERED: ACETAMINOPHEN 325 MG TABLET PO PRN (01:00)
[2020-01-05] MEDS ORDERED: MORPHINE 2 MG/ML INJ. SYRINGE IVP PRN (01:00)
[2020-01-05] MEDS ORDERED: ALBUTEROL SULFATE 0.083% 2.5 MG/3 ML VIAL.NEB INH PRN (01:00)
--- NOTE | 2020-01-05 01:04 | NUR ---
Patient will be admitted to care of DR. MUNOZ. Admitted to MS unit. Will go to room 108C. Belongings list completed. Complete and up to date summary report printed. SBAR report to be given at bedside with opportunity for questions.
--- NOTE | 2020-01-05 01:19 | NUR ---
ADMIT NOTE Received pt from ER to the floor with a diagnosis of small bowel obstruction. Admission process initiated. patient oriented to pain management, safety and call light-teach back done.
[2020-01-05 01:23] VITALS: BP_SYST 134
[2020-01-05] MEDS: NACL 0.9% 1,000 ML IV SCH ×3 (01:35→20:48)
--- NOTE | 2020-01-05 04:08 | NUR ---
Rounds: Patient is resting comfortably in bed. No acute distress. Tolerating room air, even and unlabored breathing. IV fluids infusing well. Call light with patient. Will continue monitoring
--- NOTE | 2020-01-05 05:51 | NUR ---
CONSULT CONSULT CALLED FOR DR. PANIAGUA OH I CALL TO PLACE A CONSULT TO DR. MUNOZ RADIO TALK SHOW HOST THIS MORNING
--- NOTE | 2020-01-05 06:41 | NUR ---
Closing note: Patient is asleep in bed, no acute distress. Even, unlabored breathing on room air. IV site to LAC benign and intact, IV fluids infusing well per MD order. All needs met. Call light with patient. Safety, fall precautions observed. Will endorse care to dayshift RN.
--- NOTE | 2020-01-05 07:22 | NUR ---
OPENING NOTE Patient resting in the bed. No acute distress. AAO x 4. Denied of pain. Skin warm and dry to touch. IV intact to LAC, no redness, no swelling, no drainage. On NS at 100ml/hr, infusing well. Discussed the safety issue, use call light when needs help, and plan of care, verbally understanding. Safety measure maintained. Call light within reached. Bed locked in low position, side rails up. Refused bed alarm, risk and benefit explained, verbally understanding. Will continue to monitor.
[2020-01-05 07:40] VITALS: BP_SYST 128
--- NOTE | 2020-01-05 08:06 | NUR ---
SEEN AND EXAMINED BY EUSEBIO WIGGINS. PER DR. MUNOZ, CONTINUE TO KEEP PATIENT NPO.
[2020-01-05 09:17] LABS: BASOPHILS % (AUTO) 0.4 % (0.0-2.0); EOSINOPHILS % (AUTO) 0.6 % (0.0-4.0); HEMATOCRIT 37.4 % (36-48); HEMOGLOBIN 12.4 g/dL (12.0-16.0); LYMPHOCYTES # (AUTO) 1.3 K/uL (1.0-5.5); LYMPHOCYTES % (AUTO) 18.8 % (20.5-51.5); MEAN CORPUSCULAR HEMOGLOBIN 30 pg (27-31); MEAN CORPUSCULAR HGB CONC 33 % (32-36); MEAN CORPUSCULAR VOLUME 90 fL (79.0-98.0); MONOCYTES # (AUTO) 0.6 K/uL (0.0-1.0); MONOCYTES % (AUTO) 8.9 % (1.7-9.3); NEUTROPHILS # (AUTO) 4.9 K/uL (1.8-7.7); NEUTROPHILS % (AUTO) 71.3 % (40.0-70.0); PLATELET COUNT (AUTO) 209 K/uL (130-430); RED BLOOD CELL COUNT(AUTO) 4.17 MIL/uL (4.2-6.2); RED CELL DISTRIBUTION WIDTH 15.2 % (9.0-15.0); WHITE BLOOD COUNT (AUTO) 6.8 K/uL (4.8-10.8)
[2020-01-05] MEDS ORDERED: GASTROGRAFIN 120 ML ONE (09:27)
[2020-01-05 09:41] LABS: ANION GAP 6 (5-15); CHLORIDE 110 mmol/L (98-107); GLUCOSE 85 mg/dL (70-99); POTASSIUM 3.8 mmol/L (3.5-5.1); SODIUM SERUM 142 mmol/L (136-145)
[2020-01-05 09:42] LABS: ALANINE AMINOTRANSFERASE 42 U/L (12-78); ASPARTATE AMINOTRANSFERASE 23 U/L (10-37); CALCIUM 8.2 mg/dL (8.4-11.0); CREATININE 0.76 mg/dL (0.55-1.30); TOTAL BILIRUBIN 0.5 mg/dL (0.0-1.0); UREA NITROGEN, BLOOD 15 mg/dL (8-21)
--- NOTE | 2020-01-05 10:25 | NUR ---
SEEN AND EXAMINED BY JOSE CALDERÓN.
[2020-01-05 12:00] VITALS: BP_SYST 135
--- NOTE | 2020-01-05 12:20 | NUR ---
BEDSIDE Assisted patient to transfer to bedside commode. Patient has large amount of BM. Good perineal/perirectal care provided. Assisted back to bed. Safety measure maintained. Call light within reached. Bed locked in low position, side rails up. Continue to monitor.
--- NOTE | 2020-01-05 14:25 | NUR ---
BEDSIDE COMMODE Assisted patient to transfer to bedside commode. Patient has large amount of BM. Good perineal/perirectal care provided. Assisted back to bed. Safety measure maintained. Call light within reached. Bed locked in low position, side rails up. Continue to monitor.
[2020-01-05 16:01] VITALS: BP_SYST 163
--- NOTE | 2020-01-05 16:50 | NUR ---
ROUND Patient resting in the bed. No acute distress. IV intact, IVF infusing well. Safety measure maintained. Call light within reached. Continue to monitor.
--- NOTE | 2020-01-05 18:49 | NUR ---
CLOSING NOTE Patient resting in the bed. No acute distress. Denied of pain. Skin warm and dry to touch. IV intact to LAC, no redness, no swelling, no drainage. On NS at 100ml/hr, infusing well. All needs met. Safety measure maintained. Call light within reached. Bed locked in low position, side rails up. Refused bed alarm, risk and benefit explained, verbally understanding. Will endorse to night nurse.
--- NOTE | 2020-01-05 19:35 | NUR ---
OPENING NOTES Received pt AAOx4, lying in bed. Pt on IVF with NS at 100ml/hr and infusing well on left AC gauge22. No complains of pain and no signs of acute distress or SOB noted. Safety precautions in place with 3 side rails up, wheels locked , bed alarm on and in lowest level. Call light with pt. Will continue to monitor.
--- NOTE | 2020-01-05 19:59 | NUR ---
SPOKE TO DR. MUNOZ Spoke to Dr. Munoz regarding pt's small bowel follow-through result, told him result came NORMAL. Dr. Munoz ordered to advance diet to clear liquid. Will carry out.
[2020-01-05 20:47] VITALS: BP_SYST 144
--- NOTE | 2020-01-05 20:50 | NUR ---
ROUNDS Vital signs taken and recorded. IVF infusing well. No complains of pain and no signs of acute distress or SOB noted. Encouraged to use call light when needed. Pt refused bed alarm and was educated on fall precautions, pt verbalized understanding. Will continue to monitor.
--- NOTE | 2020-01-05 23:50 | NUR ---
ROUNDS Pt is resting in bed with both eyes closed, with visible chest rise and fall with non-labored breathing noted. IVF infusing well. No complains of pain and no signs of acute distress noted. Safety precautions in place and call light with pt. Will continue to monitor.
[2020-01-06 00:51] VITALS: BP_SYST 135
--- NOTE | 2020-01-06 03:06 | NUR ---
ROUNDS Pt is resting in bed with both eyes closed, with visible chest rise and fall with non-labored breathing noted. No complains of pain and no signs of acute distress noted. IVF infusing well. No needs at this time. Safety precautions in place and call light with pt. Will continue to monitor.
--- NOTE | 2020-01-06 06:24 | NUR ---
CLOSING NOTES Pt is resting in bed with both eyes closed, with visible chest rise and fall with non-labored breathing noted. No complains of pain or discomfort and no signs of acute distress noted. IVF infusing well. All needs attended throughout the shift. Safety precautions maintained with 3 side rails up and bed in lowest level. Call light with pt. Will endorse to day shift nurse.
[2020-01-06] MEDS: NACL 0.9% 1,000 ML IV SCH (06:29)
[2020-01-06 07:13] LABS: BASOPHILS % (AUTO) 0.4 % (0.0-2.0); EOSINOPHILS % (AUTO) 0.5 % (0.0-4.0); HEMATOCRIT 35.7 % (36-48); HEMOGLOBIN 11.7 g/dL (12.0-16.0); LYMPHOCYTES # (AUTO) 1.2 K/uL (1.0-5.5); LYMPHOCYTES % (AUTO) 23.3 % (20.5-51.5); MEAN CORPUSCULAR HEMOGLOBIN 29 pg (27-31); MEAN CORPUSCULAR HGB CONC 33 % (32-36); MEAN CORPUSCULAR VOLUME 89 fL (79.0-98.0); MONOCYTES # (AUTO) 0.4 K/uL (0.0-1.0); MONOCYTES % (AUTO) 6.9 % (1.7-9.3); NEUTROPHILS # (AUTO) 3.5 K/uL (1.8-7.7); NEUTROPHILS % (AUTO) 68.9 % (40.0-70.0); PLATELET COUNT (AUTO) 203 K/uL (130-430); RED BLOOD CELL COUNT(AUTO) 4.01 MIL/uL (4.2-6.2); WHITE BLOOD COUNT (AUTO) 5.1 K/uL (4.8-10.8)
--- NOTE | 2020-01-06 07:20 | NUR ---
OPENING NOTE Patient resting in the bed. No acute distress. AAO x 4. Denied of pain at this time. Skin warm and dry to touch. IV intact to LAC, no redness, no swelling, no drainage. On NS at 100ml/hr, infusing well. Discussed the safety issue, use call light when needs help, and plan of care, verbally understanding. Safety measure maintained. Bed locked in low position, side rails up. Refused bed alarm, risk and benefit explained, verbally understanding. Call light within reached. Will continue to monitor.
--- NOTE | 2020-01-06 07:28 | NUR ---
SEEN AND EXAMINED BY DR. MUNOZ EUSEBIO WITH ORDER RECEIVED.
[2020-01-06 07:44] LABS: ALANINE AMINOTRANSFERASE 37 U/L (12-78); ALBUMIN 2.9 g/dL (3.4-4.8); ASPARTATE AMINOTRANSFERASE 25 U/L (10-37); CALCIUM 8.2 mg/dL (8.4-11.0); CHLORIDE 114 mmol/L (98-107); CREATININE 0.61 mg/dL (0.55-1.30); GLUCOSE 74 mg/dL (70-99); POTASSIUM 3.6 mmol/L (3.5-5.1); SODIUM SERUM 145 mmol/L (136-145); TOTAL BILIRUBIN 0.3 mg/dL (0.0-1.0); UREA NITROGEN, BLOOD 12 mg/dL (8-21)
[2020-01-06 07:45] VITALS: BP_SYST 142
[2020-01-06 07:58] LABS: ANION GAP 7 (5-15)
--- NOTE | 2020-01-06 10:22 | NUR ---
PATIENT TOLERATED SOFT DIET WELL, NO NAUSEA OR VOMIT NOTED.
--- NOTE | 2020-01-06 10:40 | NUR ---
SEEN AND EXAMINED BY JOSE WESTFALL WITH ORDER TO DISCHARGE HOME WITH PRESCRIPTION.
[2020-01-06 11:41] VITALS: BP_SYST 141
[2020-01-06 11:42] VITALS: BP_SYST 141
--- NOTE | 2020-01-06 11:45 | NUR ---
CALLED PATIENT'S REGARDING DISCHARGE HOME AND WAITED TO TIE UP WORKER.
--- NOTE | 2020-01-06 13:05 | NUR ---
D/C Patient Patient given medication reconciliation form and D/C instructions. Exit Care provided. Patient verbalized understanding. MD discussed with patient the results and treatment provided. Ambulatory with steady gait for discharge to home. Patient in stable condition, ID band removed. IV catheter removed, intact and dressing applied, no active bleeding. Rx of Metoclopramide given. Patient educated on pain management and follow up appointment with primary care physician in 1 week. Per patient, she has appointment tomorrow. All belongings sent with patient.
--- NOTE | 2020-01-08 15:40 | NUR ---
Discharge Follow Up Call: ORTHOPEDICALLY IMPAIRED TEACHER received a call back from patient who stated she is "doing fine" and she "has a lot of energy". Pt stated she has been admitted multiple time and knows her after care instructions. Pt was unable to fill her prescription and make an appointment with her PCP but will call today to make the appointment. Pt does not have any question/concerns about the discharge instructions. No further SS call needed at this time.
== END 2020-01-06 13:05 | disposition home or self-care (01) | DRG 390 ==
LOC: SED 20:08 → SMU 23:58
PROVIDERS: ADMIT Internal Medicine Hospice and Palliative Medicine; ATTEND Internal Medicine Hospice and Palliative Medicine
DX: K56.699 Other intestinal obstruction unspecified as to partial versus complete obstruction (principal); E11.9 Type 2 diabetes mellitus without complications; E78.5 Hyperlipidemia, unspecified; Z20.828 Contact with and (suspected) exposure to other viral communicable diseases; I10 Essential (primary) hypertension; K21.9 Gastro-esophageal reflux disease without esophagitis; Z85.42 Personal history of malignant neoplasm of other parts of uterus; Z79.899 Other long term (current) drug therapy
CPT/HCPCS: 36415; 74250-TC; 76376; 80053; 81003; 83690-TC; 85025; 96361; 96374; 96375; 99285; J1200; J2270; J2405; Q9963

== ENCOUNTER 2020-07-13 02:00 | Observation (INO) | payer BC, SELFPAY ==
[~2020-07-13] VITALS: Ht 162.6 cm; Wt 19.5 kg
[2020-07-13 02:00] VITALS: BP_SYST 155
[~2020-07-13 02:00] MED LIST changes: +LIP20 PO; +NEU300 PO; +NOR10 PO; +PANT20TA2 PO
[2020-07-13] MEDS ORDERED: NACL 0.9% 1,000 ML IV ONE (03:00)
[2020-07-13 03:12] LABS: BASOPHILS % (AUTO) 0.3 % (0.0-2.0); EOSINOPHILS % (AUTO) 0.5 % (0.0-4.0); HEMATOCRIT 38.2 % (36-48); HEMOGLOBIN 12.6 g/dL (12.0-16.0); LYMPHOCYTES # (AUTO) 1.6 K/uL (1.0-5.5); LYMPHOCYTES % (AUTO) 19.2 % (20.5-51.5); MEAN CORPUSCULAR HEMOGLOBIN 28 pg (27-31); MEAN CORPUSCULAR HGB CONC 33 % (32-36); MEAN CORPUSCULAR VOLUME 87 fL (79.0-98.0); MONOCYTES # (AUTO) 0.5 K/uL (0.0-1.0); MONOCYTES % (AUTO) 6.3 % (1.7-9.3); NEUTROPHILS # (AUTO) 6.1 K/uL (1.8-7.7); NEUTROPHILS % (AUTO) 73.7 % (40.0-70.0); PLATELET COUNT (AUTO) 206 K/uL (130-430); RED BLOOD CELL COUNT(AUTO) 4.42 MIL/uL (4.2-6.2); RED CELL DISTRIBUTION WIDTH 15.1 % (9.0-15.0); WHITE BLOOD COUNT (AUTO) 8.3 K/uL (4.8-10.8)
[2020-07-13 03:16] LABS: BILIRUBIN,URINE NEGATIVE (NEGATIVE); BLOOD, URINE NEGATIVE (NEGATIVE); CLARITY/URINE CLEAR (CLEAR); COLOR,URINE YELLOW (YELLOW); GLUCOSE,URINE NEGATIVE (NEGATIVE); KETONES,URINE NEGATIVE (NEGATIVE); LEUKOCYTE ESTERASE ,URINE NEGATIVE (NEGATIVE); NITRITE, URINE NEGATIVE (NEGATIVE); PROTEIN URINE NEGATIVE (NEGATIVE); UROBILINOGEN,URINE 0.2 (0.2-1.0)
[2020-07-13 03:22] LABS: ANION GAP 6 (5-15); CALCIUM 9.1 mg/dL (8.4-11.0); CHLORIDE 107 mmol/L (98-107); CREATININE 0.93 mg/dL (0.55-1.30); GLUCOSE 102 mg/dL (70-99); POTASSIUM 4.3 mmol/L (3.5-5.1); SODIUM SERUM 142 mmol/L (136-145); UREA NITROGEN, BLOOD 21 mg/dL (8-21)
[2020-07-13 03:27] LABS: PROTHROMBIN TIME 10.1 SECS (9.5-12.5)
[2020-07-13 03:28] LABS: ALANINE AMINOTRANSFERASE 20 U/L (12-78); ALBUMIN 3.4 g/dL (3.4-4.8); AMYLASE 101 U/L (0-100); ASPARTATE AMINOTRANSFERASE 18 U/L (10-37); LIPASE 124 U/L (73-393); TOTAL BILIRUBIN 0.4 mg/dL (0.0-1.0)
[2020-07-13] MEDS ORDERED: MORPHINE 4 MG INJ. 4 MG/ML VIAL IVP ONE (04:00)
[2020-07-13] MEDS ORDERED: ONDANSETRON HCL 4 MG/2 ML VIAL IVP ONE (04:00)
[2020-07-13] MEDS ORDERED: MORPHINE 4 MG INJ. 4 MG/ML VIAL ONE (04:02)
[2020-07-13] MEDS ORDERED: ONDANSETRON HCL 4 MG/2 ML VIAL ONE (04:03)
[2020-07-13] MEDS ORDERED: ALBUTEROL SULFATE 0.083% 2.5 MG/3 ML VIAL.NEB INH PRN (08:15)
[2020-07-13] MEDS ORDERED: MORPHINE 2 MG/ML INJ. SYRINGE IVP PRN (08:15)
[2020-07-13] MEDS ORDERED: ACETAMINOPHEN 325 MG TABLET PO PRN (08:15)
[2020-07-13] MEDS ORDERED: NALOXONE HCL 0.4 MG/ML AMP (NARCAN) IVP PRN (08:15)
[2020-07-13] MEDS ORDERED: MORPHINE 4 MG INJ. 4 MG/ML VIAL IVP PRN (08:15)
[2020-07-13] MEDS ORDERED: ONDANSETRON HCL 4 MG/2 ML VIAL IVP PRN (08:15)
[2020-07-13] MEDS: amLODIPine BESYLATE 5 MG TABLET PO SCH (09:28)
[2020-07-13] MEDS: GABAPENTIN 300 MG CAPSULE PO SCH (09:28)
[2020-07-13] MEDS: ATORVASTATIN 20 MG TABLET PO SCH (09:28)
[2020-07-13] MEDS: PANTOPRAZOLE SODIUM 40 MG/VIAL (PROTONIX) IVP SCH (09:28)
[2020-07-13 09:54] VITALS: BP_SYST 109
[2020-07-13 12:21] VITALS: BP_SYST 123
[2020-07-13] MEDS: NACL 0.9% 1,000 ML IV SCH (15:37)
[2020-07-13 16:13] VITALS: BP_SYST 135
[2020-07-13 20:00] VITALS: BP_SYST 133
[2020-07-14] MEDS: NACL 0.9% 1,000 ML IV SCH ×3 (01:57→12:06)
[2020-07-14 06:34] LABS: BASOPHILS % (AUTO) 0.4 % (0.0-2.0); EOSINOPHILS # (AUTO) 0.1 K/uL (0.0-0.4); EOSINOPHILS % (AUTO) 1.4 % (0.0-4.0); HEMATOCRIT 32.3 % (36-48); HEMOGLOBIN 10.7 g/dL (12.0-16.0); LYMPHOCYTES # (AUTO) 1.3 K/uL (1.0-5.5); LYMPHOCYTES % (AUTO) 29.2 % (20.5-51.5); MEAN CORPUSCULAR HEMOGLOBIN 29 pg (27-31); MEAN CORPUSCULAR HGB CONC 33 % (32-36); MEAN CORPUSCULAR VOLUME 87 fL (79.0-98.0); MONOCYTES # (AUTO) 0.4 K/uL (0.0-1.0); MONOCYTES % (AUTO) 9.2 % (1.7-9.3); NEUTROPHILS # (AUTO) 2.6 K/uL (1.8-7.7); NEUTROPHILS % (AUTO) 59.8 % (40.0-70.0); PLATELET COUNT (AUTO) 196 K/uL (130-430); RED BLOOD CELL COUNT(AUTO) 3.72 MIL/uL (4.2-6.2); RED CELL DISTRIBUTION WIDTH 15.7 % (9.0-15.0); WHITE BLOOD COUNT (AUTO) 4.4 K/uL (4.8-10.8)
[2020-07-14 06:56] LABS: ALANINE AMINOTRANSFERASE 16 U/L (12-78); ALBUMIN 2.5 g/dL (3.4-4.8); ANION GAP 5 (5-15); ASPARTATE AMINOTRANSFERASE 22 U/L (10-37); CALCIUM 7.7 mg/dL (8.4-11.0); CHLORIDE 111 mmol/L (98-107); CREATININE 0.66 mg/dL (0.55-1.30); GLUCOSE 83 mg/dL (70-99); POTASSIUM 4.1 mmol/L (3.5-5.1); SODIUM SERUM 144 mmol/L (136-145); TOTAL BILIRUBIN 0.3 mg/dL (0.0-1.0); UREA NITROGEN, BLOOD 12 mg/dL (8-21)
[2020-07-14 07:55] VITALS: BP_SYST 136
[2020-07-14] MEDS: amLODIPine BESYLATE 5 MG TABLET PO SCH (08:53)
[2020-07-14] MEDS: GABAPENTIN 300 MG CAPSULE PO SCH (08:53)
[2020-07-14] MEDS: PANTOPRAZOLE SODIUM 40 MG/VIAL (PROTONIX) IVP SCH (08:53)
[2020-07-14] MEDS: ATORVASTATIN 20 MG TABLET PO SCH (08:53)
[2020-07-14 12:00] VITALS: BP_SYST 117
[2020-07-14 14:46] VITALS: BP_SYST 117
[2020-07-14 16:00] VITALS: BP_SYST 122
== END 2020-07-14 17:45 | disposition home or self-care (01) ==
LOC: SED 02:00 → SMU 05:27 → INTOOBSV 05:27 → SMU 09:33
PROVIDERS: ADMIT Internal Medicine Hospice and Palliative Medicine; ATTEND Internal Medicine Hospice and Palliative Medicine
DX: K56.609 Unspecified intestinal obstruction, unspecified as to partial versus complete obstruction (principal); Z20.822 Contact with and (suspected) exposure to COVID-19; I10 Essential (primary) hypertension; K21.9 Gastro-esophageal reflux disease without esophagitis; E78.5 Hyperlipidemia, unspecified; E11.40 Type 2 diabetes mellitus with diabetic neuropathy, unspecified; Z88.0 Allergy status to penicillin; Z85.42 Personal history of malignant neoplasm of other parts of uterus; Z87.11 Personal history of peptic ulcer disease; Z90.710 Acquired absence of both cervix and uterus; Z79.899 Other long term (current) drug therapy
CPT/HCPCS: 36415 ×2; 74018; 74176; 76376; 80053 ×2; 81003; 82150; 83690; 85025 ×2; 85610; 87426; 96361 ×2; 96374; 96375; 96376 ×2; 99285; C9113 ×2; G0378 ×2; J2270; J2405

== ENCOUNTER 2020-11-03 14:24 | Observation (INO) | payer BC, SELFPAY ==
[~2020-11-03] VITALS: Ht 144.8 cm; Wt 47.4 kg
[~2020-11-03 14:24] MED LIST changes: -AMLO5TAB4 PO; -GABA-331 PO; -LIP40 PO; -PRO40 PO
--- NOTE | 2020-11-03 15:15 | NUR ---
Patient to ER bed 8 to gown for evaluation. Side rails up. Report given to NADER WEEMS.
[2020-11-03 15:16] VITALS: BP_SYST 188
--- NOTE | 2020-11-03 15:20 | NUR ---
Pt walked in to ER with c/o abdominal pain 09/16 and n/v since this morning. Denies any fevers at this time. V/S stable, no acute distress noted.
--- NOTE | 2020-11-03 16:00 | NUR ---
ER Dr. Salazar at bedside examining patient.
[2020-11-03] MEDS ORDERED: NACL 0.9% 1,000 ML IV ONE (16:15)
[2020-11-03] MEDS ORDERED: MORPHINE 4 MG INJ. 4 MG/ML VIAL IVP ONE ×2 (16:15→19:00)
--- NOTE | 2020-11-03 16:15 | NUR ---
Patient transported to radiology via wheelchair, accompanied by staff.
[2020-11-03 16:28] LABS: BILIRUBIN,URINE NEGATIVE (NEGATIVE); BLOOD, URINE NEGATIVE (NEGATIVE); CLARITY/URINE CLEAR (CLEAR); COLOR,URINE YELLOW (YELLOW); GLUCOSE,URINE NEGATIVE (NEGATIVE); KETONES,URINE NEGATIVE (NEGATIVE); LEUKOCYTE ESTERASE ,URINE NEGATIVE (NEGATIVE); NITRITE, URINE NEGATIVE (NEGATIVE); PH,URINE 6.5 (5.0-8.0); PROTEIN URINE NEGATIVE (NEGATIVE); UROBILINOGEN,URINE 0.2 (0.2-1.0)
[2020-11-03] MEDS ORDERED: ONDANSETRON HCL 4 MG/2 ML VIAL IVP ONE (16:45)
[2020-11-03 16:53] LABS: BASOPHILS # (AUTO) 0.2 K/uL (0.0-0.2); BASOPHILS % (AUTO) 2.3 % (0.0-2.0); EOSINOPHILS % (AUTO) 0.1 % (0.0-4.0); HEMATOCRIT 39.2 % (36-48); HEMOGLOBIN 13.2 g/dL (12.0-16.0); LYMPHOCYTES # (AUTO) 0.7 K/uL (1.0-5.5); LYMPHOCYTES % (AUTO) 6.2 % (20.5-51.5); MEAN CORPUSCULAR HEMOGLOBIN 30 pg (27-31); MEAN CORPUSCULAR HGB CONC 34 % (32-36); MEAN CORPUSCULAR VOLUME 89 fL (79.0-98.0); MONOCYTES # (AUTO) 0.3 K/uL (0.0-1.0); MONOCYTES % (AUTO) 3.3 % (1.7-9.3); NEUTROPHILS # (AUTO) 9.3 K/uL (1.8-7.7); NEUTROPHILS % (AUTO) 88.1 % (40.0-70.0); PLATELET COUNT (AUTO) 208 K/uL (130-430); RED BLOOD CELL COUNT(AUTO) 4.41 MIL/uL (4.2-6.2); RED CELL DISTRIBUTION WIDTH 14.1 % (9.0-15.0); WHITE BLOOD COUNT (AUTO) 10.6 K/uL (4.8-10.8)
[2020-11-03 17:31] LABS: ANION GAP 11 (5-15); CALCIUM 9.7 mg/dL (8.4-11.0); CHLORIDE 104 mmol/L (98-107); CREATININE 0.88 mg/dL (0.55-1.30); GLUCOSE 107 mg/dL (70-99); POTASSIUM 4.5 mmol/L (3.5-5.1); SODIUM SERUM 142 mmol/L (136-145); UREA NITROGEN, BLOOD 19 mg/dL (8-21)
[2020-11-03 17:36] LABS: ALANINE AMINOTRANSFERASE 20 U/L (12-78); ALBUMIN 3.7 g/dL (3.4-4.8); ASPARTATE AMINOTRANSFERASE 21 U/L (10-37); LIPASE 152 U/L (73-393); PHOSPHORUS 4.1 mg/dL (2.7-4.5); TOTAL BILIRUBIN 0.3 mg/dL (0.0-1.0)
[2020-11-03] MEDS ORDERED: LISI20TA30 PO (18:32)
--- NOTE | 2020-11-03 18:32 | NUR ---
Medication reconciliation completed with information provided by Patient. Any prior medication reconciliation on file was reviewed and corrected.
--- NOTE | 2020-11-03 18:33 | NUR ---
Belongings list completed.
--- NOTE | 2020-11-03 19:05 | NUR ---
Admit orders received from Dr. Ames, pt to go to med-surg. Charge nurse is in change of shift report and will call us back with a bed assignment, ,
--- NOTE | 2020-11-03 19:20 | NUR ---
Assumed care of patient at change of shift. Introduced self to patient, positioned for comfort. bed to low position sr up, continue to monitor. Patient resting quietly. No acute distress noted. Vital signs within normal range.
--- NOTE | 2020-11-03 19:20 | NUR ---
Care of patient endorsed to FAUSTINA Preciado. Pt currently resting in bed, no acute distress noted.
[2020-11-03] MEDS ORDERED: HYDROcodone/ACETAMIN 5-325 MG TAB (NORCO/ VICODIN) PO PRN (19:45)
[2020-11-03] MEDS ORDERED: ALBUTEROL SULFATE 0.083% 2.5 MG/3 ML VIAL.NEB INH PRN (19:45)
[2020-11-03] MEDS ORDERED: MORPHINE 4 MG INJ. 4 MG/ML VIAL IVP PRN (19:45)
[2020-11-03] MEDS ORDERED: ACETAMINOPHEN 325 MG TABLET PO PRN (19:45)
[2020-11-03] MEDS ORDERED: ONDANSETRON HCL 4 MG/2 ML VIAL IVP PRN (19:45)
[2020-11-03] MEDS: NACL 0.9% 1,000 ML IV SCH (19:45)
[2020-11-03] MEDS ORDERED: hydrALAZINE HCL 20 MG/ML VIAL IVP PRN (19:45)
[2020-11-03 20:04] VITALS: BP_SYST 188
--- NOTE | 2020-11-03 21:05 | NUR ---
Patient resting quietly. No acute distress noted. Vital signs within normal range.
--- NOTE | 2020-11-03 21:27 | NUR ---
podiatric technician at bedside, patient medicated w/ protonix and iv fluids as ordered. iv site patent and intact and will monitor for any adverse reaction. continue to monitor.
[2020-11-03] MEDS: PANTOPRAZOLE SODIUM 40 MG/VIAL (PROTONIX) IVP SCH (21:45)
--- NOTE | 2020-11-03 22:01 | NUR ---
Report called and spoke w/ Mohan RN for room 129A. Patient informed of admission, verbalized understanding and reason for admission. Patient will be admitted to care of MD Solis. Admitted to med/surg unit. Will go to room 129A. Belongings list completed. Complete and up to date summary report printed. SBAR report to be given at bedside with opportunity for questions.
--- NOTE | 2020-11-03 22:15 | NUR ---
Admission Note Received patient from ER with diagnosis of AB PAIN. Initial Plan of Care discussed-patient verbalized understanding. Oriented to room, call light, pain management and safety.
[2020-11-03 22:21] VITALS: BP_SYST 134
--- NOTE | 2020-11-03 22:53 | NUR ---
NOTES: took over care from nurse Forbes. pt. came in for abdominal pain. reoriented to room, use of call light and bed control. IVF infusing via rt. arm , started in ER. no pain on arrival. moves all extremities. on room air, denies any shortness of breath. call light within reach.
--- NOTE | 2020-11-04 01:20 | NUR ---
NOTES: pt. checked, sleeping. IVF continuous.
--- NOTE | 2020-11-04 04:30 | NUR ---
CONSULT: CONSULT CALLED FOR DR. MARILU DRAPER STAMPING DIE MAKER BENCH THIS MORNING I SPOKE WITH NATHALIA MCNEAL REASON FOR CONSULT: ABDOMINAL PAIN REQUESTING CONSULT: DR. FLYNN ASSIGNMENT CLERK PHONE NUMBER: [phone]
--- NOTE | 2020-11-04 05:44 | NUR ---
NOTES" pt. checked, woke up but denies any pain. IVF continuous.
--- NOTE | 2020-11-04 06:32 | NUR ---
CLOSING NOTES; pt.remain sleeping. IVF infusing. denies any pain. for GI consult today. needs attended. for further care and assistance. call light within reach.
[2020-11-04 06:36] LABS: BASOPHILS % (AUTO) 0.3 % (0.0-2.0); EOSINOPHILS # (AUTO) 0.1 K/uL (0.0-0.4); EOSINOPHILS % (AUTO) 1.6 % (0.0-4.0); HEMATOCRIT 33.4 % (36-48); HEMOGLOBIN 11.2 g/dL (12.0-16.0); LYMPHOCYTES # (AUTO) 1.6 K/uL (1.0-5.5); LYMPHOCYTES % (AUTO) 32.3 % (20.5-51.5); MEAN CORPUSCULAR HEMOGLOBIN 30 pg (27-31); MEAN CORPUSCULAR HGB CONC 33 % (32-36); MEAN CORPUSCULAR VOLUME 90 fL (79.0-98.0); MONOCYTES # (AUTO) 0.5 K/uL (0.0-1.0); MONOCYTES % (AUTO) 9.8 % (1.7-9.3); NEUTROPHILS # (AUTO) 2.7 K/uL (1.8-7.7); PLATELET COUNT (AUTO) 152 K/uL (130-430); RED BLOOD CELL COUNT(AUTO) 3.71 MIL/uL (4.2-6.2); RED CELL DISTRIBUTION WIDTH 14.2 % (9.0-15.0); WHITE BLOOD COUNT (AUTO) 4.9 K/uL (4.8-10.8)
[2020-11-04 07:00] LABS: ALANINE AMINOTRANSFERASE 13 U/L (12-78); ALBUMIN 2.6 g/dL (3.4-4.8); ANION GAP 8 (5-15); ASPARTATE AMINOTRANSFERASE 11 U/L (10-37); CALCIUM 8.1 mg/dL (8.4-11.0); CHLORIDE 111 mmol/L (98-107); CREATININE 0.82 mg/dL (0.55-1.30); GLUCOSE 85 mg/dL (70-99); POTASSIUM 4.2 mmol/L (3.5-5.1); SODIUM SERUM 144 mmol/L (136-145); TOTAL BILIRUBIN 0.3 mg/dL (0.0-1.0); UREA NITROGEN, BLOOD 15 mg/dL (8-21)
[2020-11-04] MEDS: NACL 0.9% 1,000 ML IV SCH ×2 (08:44→15:45)
[2020-11-04] MEDS ORDERED: lisinopriL 20 MG TABLET PO SCH (09:00)
[2020-11-04] MEDS ORDERED: ATORVASTATIN 20 MG TABLET PO SCH (09:00)
[2020-11-04] MEDS ORDERED: GASTROGRAFIN 120 ML ONE (10:01)
[2020-11-04] MEDS: PANTOPRAZOLE SODIUM 40 MG/VIAL (PROTONIX) IVP SCH (11:29)
[2020-11-04 12:52] VITALS: BP_SYST 129
[2020-11-04 17:20] VITALS: BP_SYST 149
[2020-11-04 19:50] VITALS: BP_SYST 147
[2020-11-04 19:52] VITALS: BP_SYST 147
--- NOTE | 2020-11-04 20:12 | NUR ---
PT DC TO HOME. PT RECEIVED ALL EDUCATION AND PAPERWORK. IV REMOVED. ID BAND REMOVED. FAMILY AT BEDSIDE. PT AMBULATED TO PARKING LOT ON HER OWN POWER.
--- NOTE | 2020-11-11 10:08 | NUR ---
IV ADMINISTRATION END TIME (Observation Patients ONLY): Late Entry: IV infusion of NSaline at 100ml/hr started at 0844 on 11/04/20 and ended at 15:45 IV Infusion of Nsaline at 100ml/hr started at 15:45 on 11/04/20 and discontinued at 20:00 prior to pts discharge.
== END 2020-11-04 20:12 | disposition home or self-care (01) ==
LOC: SED 14:24 → SMU 19:02
PROVIDERS: ADMIT Internal Medicine Hospice and Palliative Medicine; ATTEND Internal Medicine Hospice and Palliative Medicine
DX: R10.9 Unspecified abdominal pain (principal); Z20.822 Contact with and (suspected) exposure to COVID-19; N39.0 Urinary tract infection, site not specified; K56.7 Ileus, unspecified; I10 Essential (primary) hypertension; E11.9 Type 2 diabetes mellitus without complications; K21.9 Gastro-esophageal reflux disease without esophagitis; K58.9 Irritable bowel syndrome, unspecified; K56.609 Unspecified intestinal obstruction, unspecified as to partial versus complete obstruction; Z87.39 Personal history of other diseases of the musculoskeletal system and connective tissue; Z85.42 Personal history of malignant neoplasm of other parts of uterus; Z87.11 Personal history of peptic ulcer disease; Z88.0 Allergy status to penicillin; Z79.899 Other long term (current) drug therapy; Z90.710 Acquired absence of both cervix and uterus
CPT/HCPCS: 36415 ×2; 74176; 74250; 76376; 76700; 80053 ×2; 81003; 83690; 83735; 84100; 84484; 85025 ×2; 87040; 87426; 96361 ×2; 96374; 96375; 96376; 99284; C9113 ×2; G0378 ×2; J2270; J2405; Q9963

== ENCOUNTER 2021-01-17 18:11 | Inpatient (IN) | payer BC, SELFPAY ==
[~2021-01-17] VITALS: Ht 149.9 cm; Wt 48.1 kg
[~2021-01-17 18:11] MED LIST changes: +LISI20TA30 PO; -NEU300 PO; -NOR10 PO
--- NOTE | 2021-01-17 18:28 | NUR ---
Placed in room 05 . Placed on residential monitor, blood pressure machine and pulse oximeter. To gown for exam. Side rails up.
[2021-01-17 18:30] VITALS: BP_SYST 170
--- NOTE | 2021-01-17 18:30 | NUR ---
Pt brought by self,A&Ox4, pt presents to ER with upper abdominal pain and nausea, pt states she has Hx of bowell obstruction, skin pink and warm, cap refill <3, VSS, respirations even and unlabored.
[2021-01-17 19:09] LABS: BILIRUBIN,URINE NEGATIVE (NEGATIVE); BLOOD, URINE NEGATIVE (NEGATIVE); CLARITY/URINE CLEAR (CLEAR); COLOR,URINE YELLOW (YELLOW); GLUCOSE,URINE NEGATIVE (NEGATIVE); KETONES,URINE 2+ (NEGATIVE); LEUKOCYTE ESTERASE ,URINE NEGATIVE (NEGATIVE); NITRITE, URINE NEGATIVE (NEGATIVE); PH,URINE 7.5 (5.0-8.0); PROTEIN URINE NEGATIVE (NEGATIVE)
--- NOTE | 2021-01-17 19:14 | NUR ---
Report given to Mary WEEMS
[2021-01-17] MEDS ORDERED: ONDANSETRON HCL 4 MG/2 ML VIAL IVP ONE (19:30)
[2021-01-17] MEDS ORDERED: NACL 0.9% 1,000 ML IV ONE (19:30)
[2021-01-17] MEDS ORDERED: MORPHINE 4 MG INJ. 4 MG/ML VIAL IVP ONE (19:30)
[2021-01-17 19:40] LABS: BASOPHILS % (AUTO) 0.1 % (0.0-2.0); HEMOGLOBIN 12.9 g/dL (12.0-16.0); LYMPHOCYTES # (AUTO) 0.7 K/uL (1.0-5.5); LYMPHOCYTES % (AUTO) 5.2 % (20.5-51.5); MEAN CORPUSCULAR HEMOGLOBIN 29 pg (27-31); MEAN CORPUSCULAR HGB CONC 33 % (32-36); MEAN CORPUSCULAR VOLUME 89 fL (79.0-98.0); MONOCYTES # (AUTO) 0.3 K/uL (0.0-1.0); MONOCYTES % (AUTO) 2.6 % (1.7-9.3); NEUTROPHILS # (AUTO) 11.7 K/uL (1.8-7.7); NEUTROPHILS % (AUTO) 92.1 % (40.0-70.0); PLATELET COUNT (AUTO) 190 K/uL (130-430); RED BLOOD CELL COUNT(AUTO) 4.41 MIL/uL (4.2-6.2); RED CELL DISTRIBUTION WIDTH 14.6 % (9.0-15.0); WHITE BLOOD COUNT (AUTO) 12.8 K/uL (4.8-10.8)
[2021-01-17 19:45] LABS: ANION GAP 6 (5-15); CALCIUM 9.7 mg/dL (8.4-11.0); CHLORIDE 103 mmol/L (98-107); CREATININE 0.89 mg/dL (0.55-1.30); GLUCOSE 127 mg/dL (70-99); POTASSIUM 4.6 mmol/L (3.5-5.1); SODIUM SERUM 138 mmol/L (136-145); UREA NITROGEN, BLOOD 18 mg/dL (8-21)
--- NOTE | 2021-01-17 19:48 | NUR ---
KOSTAS HERNANDEZ at bedside examining patient.
[2021-01-17 19:49] LABS: PROTHROMBIN TIME 10.4 SECS (9.5-12.5)
[2021-01-17 19:51] LABS: ALANINE AMINOTRANSFERASE 21 U/L (12-78); ALBUMIN 3.5 g/dL (3.4-4.8); ASPARTATE AMINOTRANSFERASE 17 U/L (10-37); LIPASE 100 U/L (73-393); TOTAL BILIRUBIN 0.4 mg/dL (0.0-1.0)
[2021-01-17] MEDS ORDERED: MAG HYDROX/AL HYDROX/SIMETH 30 ML, LIDOCAINE VISCOUS 2% 15ML (PO) 15 ML, DICYCLOMINE HC... PO ONE ×3 (20:00)
--- NOTE | 2021-01-17 23:09 | NUR ---
PT IS FULL CODE
--- NOTE | 2021-01-17 23:09 | NUR ---
Medication reconciliation completed with information provided by PATIENT. Any prior medication reconciliation on file was reviewed and corrected.
--- NOTE | 2021-01-17 23:09 | NUR ---
BELONGINGS LIST DONE
--- NOTE | 2021-01-17 23:30 | NUR ---
PT MOVED TO BED 1 FOR OTHER PATIENTS NEED OF ROOM 5
[2021-01-18] VITALS (7 sets, daily range): BP systolic 120–155
[2021-01-18] MEDS ORDERED: ALBUTEROL SULFATE 0.083% 2.5 MG/3 ML VIAL.NEB INH PRN
[2021-01-18] MEDS ORDERED: HYDROcodone/ACETAMIN 5-325 MG TAB (NORCO/ VICODIN) PO PRN
[2021-01-18] MEDS ORDERED: ACETAMINOPHEN 325 MG TABLET PO PRN
[2021-01-18] MEDS ORDERED: NACL 0.9% 1,000 ML IV SCH
[2021-01-18] MEDS ORDERED: hydrALAZINE HCL 20 MG/ML VIAL IVP ONE (00:15)
--- NOTE | 2021-01-18 01:25 | NUR ---
PT TRANSPORTED TO MED SURG. REPORT GIVEN OVER THE PHONE
--- NOTE | 2021-01-18 01:30 | NUR ---
ADMISSION NOTE Received patient from ER via sandhya, received report from DEBORAH WEEMS. Patient admitted with diagnosis of SMALL BOWEL OBSTRUCTION. Patient oriented to hospital routine, call light, toileting and safety-patient verbalized understanding.
--- NOTE | 2021-01-18 03:40 | NUR ---
PATIENT RESTING: Patient resting quietly. No acute distress noted. IV Fluid infusing well
--- NOTE | 2021-01-18 06:55 | NUR ---
With mild abdominal pain tolerable as verbalized , no nausea , encouraged to ambulate verbalized understanding.
--- NOTE | 2021-01-18 08:00 | NUR ---
PATIENT IN BED, NO S/S OF DISTRESS, TOLERATING CARE, SAFETY MEASURES IN PLACE WILL CONTINUE TO MONITOR.
[2021-01-18 08:52] LABS: BASOPHILS % (AUTO) 0.2 % (0.0-2.0); EOSINOPHILS % (AUTO) 0.3 % (0.0-4.0); HEMATOCRIT 32.9 % (36-48); LYMPHOCYTES # (AUTO) 1.2 K/uL (1.0-5.5); LYMPHOCYTES % (AUTO) 19.2 % (20.5-51.5); MEAN CORPUSCULAR HEMOGLOBIN 30 pg (27-31); MEAN CORPUSCULAR HGB CONC 34 % (32-36); MEAN CORPUSCULAR VOLUME 89 fL (79.0-98.0); MONOCYTES # (AUTO) 0.5 K/uL (0.0-1.0); MONOCYTES % (AUTO) 8.7 % (1.7-9.3); NEUTROPHILS # (AUTO) 4.3 K/uL (1.8-7.7); NEUTROPHILS % (AUTO) 71.6 % (40.0-70.0); PLATELET COUNT (AUTO) 177 K/uL (130-430); RED CELL DISTRIBUTION WIDTH 14.7 % (9.0-15.0)
[2021-01-18] MEDS ORDERED: PANTOPRAZOLE SODIUM 40 MG/VIAL (PROTONIX) IVP ONE (09:00)
[2021-01-18 09:36] LABS: ALANINE AMINOTRANSFERASE 22 U/L (12-78); ALBUMIN 2.7 g/dL (3.4-4.8); ANION GAP 5 (5-15); ASPARTATE AMINOTRANSFERASE 19 U/L (10-37); CALCIUM 8.5 mg/dL (8.4-11.0); CHLORIDE 109 mmol/L (98-107); CREATININE 0.86 mg/dL (0.55-1.30); GLUCOSE 99 mg/dL (70-99); SODIUM SERUM 140 mmol/L (136-145); TOTAL BILIRUBIN 0.5 mg/dL (0.0-1.0); UREA NITROGEN, BLOOD 16 mg/dL (8-21)
[2021-01-18] MEDS ORDERED: MORPHINE 4 MG INJ. 4 MG/ML VIAL IVP PRN ×2 (10:15)
[2021-01-18] MEDS ORDERED: MORPHINE 2 MG/ML INJ. SYRINGE IVP PRN (10:15)
[2021-01-18] MEDS ORDERED: NALOXONE HCL 0.4 MG/ML AMP (NARCAN) IVP PRN (10:15)
[2021-01-18] MEDS ORDERED: LORazepam 2 MG/ML VIAL IVP PRN (10:15)
[2021-01-18] MEDS ORDERED: ONDANSETRON HCL 4 MG/2 ML VIAL IVP PRN ×2 (10:15)
--- NOTE | 2021-01-18 10:47 | NUR ---
CONSULTATION PAGED/CALLED Reason for Consultation: [] SMALL BOWEL OBSTRUCTION Person Who was Notified: [] OLU Consulting Physician: [] DR ARCELIA MARQUEZ Steward/Stewardess Economy Class Specialty: [] GEN SURGEON Ordering Physician: [] DR Alejandro NAILS
[2021-01-18] MEDS: D5/0.45 NS 1,000 ML IV SCH (11:37)
[2021-01-18] MEDS ORDERED: GASTROGRAFIN 120 ML ONE (14:13)
--- NOTE | 2021-01-18 14:30 | NUR ---
patient started on oral gastrographin medication, bedside commode prepared for patient.
--- NOTE | 2021-01-18 19:30 | NUR ---
PATIENT IN BED, NO S/S OF DISTRESS, TOLERATING CARE, SAFETY MEASURES IN PLACE, ENDORSED CONTINUATION OF CARE
--- NOTE | 2021-01-18 21:16 | NUR ---
IV RE-INSERTION: Complaining of leaking to IV site right hand. Restarted on left fore arm g.22 . Successful after attempt. Resumed current IVF . Will observe for any signs of infiltration.
[2021-01-19 01:11] VITALS: BP_SYST 119
[2021-01-19] MEDS: D5/0.45 NS 1,000 ML IV SCH ×2 (01:26→10:02)
--- NOTE | 2021-01-19 04:36 | NUR ---
Denies any abdominal pain , no loose stool after midnight, on continuos hydration.
[2021-01-19 07:16] LABS: BASOPHILS % (AUTO) 0.2 % (0.0-2.0); EOSINOPHILS % (AUTO) 0.6 % (0.0-4.0); HEMATOCRIT 33.3 % (36-48); LYMPHOCYTES # (AUTO) 1.1 K/uL (1.0-5.5); LYMPHOCYTES % (AUTO) 30.9 % (20.5-51.5); MEAN CORPUSCULAR HEMOGLOBIN 30 pg (27-31); MEAN CORPUSCULAR HGB CONC 33 % (32-36); MEAN CORPUSCULAR VOLUME 89 fL (79.0-98.0); MONOCYTES # (AUTO) 0.4 K/uL (0.0-1.0); MONOCYTES % (AUTO) 11.6 % (1.7-9.3); NEUTROPHILS % (AUTO) 56.7 % (40.0-70.0); PLATELET COUNT (AUTO) 172 K/uL (130-430); RED BLOOD CELL COUNT(AUTO) 3.74 MIL/uL (4.2-6.2); RED CELL DISTRIBUTION WIDTH 14.6 % (9.0-15.0)
--- NOTE | 2021-01-19 07:30 | NUR ---
REPORT GIVEN, PATIENT IN BED, NO S/S OF DISTRESS, A/OX4, AMBULATORY, NO PAIN AT THIS TIME, STATES SHE HAS HAD 2 BOWEL MOVEMENTS SINCE MIDNIGHT BUT FREQUENCY IS DECREASING, IV INTACT PATENT RUNNING D5 1/2NS AT 100ML/HR, SAFETY MEASURES IN PLACE, BED IN LOWEST LOCKED POSITION, CALL LIGHT WITHIN REACH, WILL CONTINUE TO MONITOR.
[2021-01-19 08:00] VITALS: BP_SYST 147
[2021-01-19 08:04] LABS: ALANINE AMINOTRANSFERASE 20 U/L (12-78); ALBUMIN 2.8 g/dL (3.4-4.8); ANION GAP 10 (5-15); ASPARTATE AMINOTRANSFERASE 15 U/L (10-37); CALCIUM 8.2 mg/dL (8.4-11.0); CHLORIDE 112 mmol/L (98-107); CREATININE 0.86 mg/dL (0.55-1.30); GLUCOSE 122 mg/dL (70-99); POTASSIUM 3.8 mmol/L (3.5-5.1); SODIUM SERUM 147 mmol/L (136-145); TOTAL BILIRUBIN 0.4 mg/dL (0.0-1.0); UREA NITROGEN, BLOOD 12 mg/dL (8-21)
[2021-01-19 09:08] LABS: WHITE BLOOD COUNT (AUTO) 3.5 K/uL (4.8-10.8)
--- NOTE | 2021-01-19 10:00 | NUR ---
DECREASED RATE OF IV FLUID D5 1/2NS FROM 100ML/HR TO 60ML/HR, IN ADDITION PATIENT STATED THAT DR FLYNN TOLD HER THAT HE WANTS TO SEE HOW SHE TOLERATED ADVANCING HER DIET AND IF SHE IS TOLERATING WELL THEY WILL DISCUSS DISCHARGE.
[2021-01-19 11:27] VITALS: BP_SYST 140
[2021-01-19 15:18] VITALS: BP_SYST 127
[2021-01-19 18:38] VITALS: BP_SYST 127
--- NOTE | 2021-01-19 19:20 | NUR ---
ENDORSED DISCHARGE TO MOBILE HOME TECHNICIAN, JUST WAITING ON TO ARRIVE
--- NOTE | 2021-01-19 19:45 | NUR ---
PATIENT DISCHARGED WITH BELONGINGS Patient stable, went home with via personal vehicle.
== END 2021-01-19 19:32 | disposition home health service (06) | DRG 390 ==
LOC: SED 18:11 → SMU 23:51
PROVIDERS: ADMIT Internal Medicine Hospice and Palliative Medicine; ATTEND Internal Medicine Hospice and Palliative Medicine
DX: K56.600 Partial intestinal obstruction, unspecified as to cause (principal); K21.9 Gastro-esophageal reflux disease without esophagitis; E11.65 Type 2 diabetes mellitus with hyperglycemia; I10 Essential (primary) hypertension; D72.829 Elevated white blood cell count, unspecified; E78.5 Hyperlipidemia, unspecified; Z20.822 Contact with and (suspected) exposure to COVID-19; Z92.21 Personal history of antineoplastic chemotherapy; Z92.3 Personal history of irradiation; Z85.42 Personal history of malignant neoplasm of other parts of uterus; Z90.710 Acquired absence of both cervix and uterus; Z98.891 History of uterine scar from previous surgery; Z87.11 Personal history of peptic ulcer disease; Z88.0 Allergy status to penicillin; Z79.899 Other long term (current) drug therapy
CPT/HCPCS: 36415; 74018; 74250-TC; 76376; 80053; 81003; 83690; 83735; 84100; 85025; 85610-TC; 96361; 96374; 96375; 99285; C9113; J2001; J2270; J2405; Q9963

== ENCOUNTER 2021-03-13 02:59 | Emergency (ER) | payer BC, SELFPAY ==
[~2021-03-13] VITALS: Ht 152.4 cm; Wt 41.7 kg
[2021-03-13 03:35] VITALS: BP_SYST 159
--- NOTE | 2021-03-13 03:40 | NUR ---
Patient to ER bed 4 to gown for evaluation. Side rails up. Report given to Jose WEEMS.
[2021-03-13] MEDS ORDERED: MORPHINE 2 MG/ML INJ. SYRINGE IVP ONE (03:45)
[2021-03-13] MEDS ORDERED: ONDANSETRON HCL 4 MG/2 ML VIAL IVP ONE (03:45)
--- NOTE | 2021-03-13 03:50 | NUR ---
Dr. Iverson at bedside assessing patient.
[2021-03-13 04:26] LABS: BASOPHILS % (AUTO) 0.3 % (0.0-2.0); EOSINOPHILS % (AUTO) 0.5 % (0.0-4.0); HEMATOCRIT 41.3 % (36-48); LYMPHOCYTES # (AUTO) 1.2 K/uL (1.0-5.5); LYMPHOCYTES % (AUTO) 11.3 % (20.5-51.5); MEAN CORPUSCULAR HEMOGLOBIN 30 pg (27-31); MEAN CORPUSCULAR HGB CONC 34 % (32-36); MEAN CORPUSCULAR VOLUME 88 fL (79.0-98.0); MONOCYTES # (AUTO) 0.6 K/uL (0.0-1.0); MONOCYTES % (AUTO) 5.3 % (1.7-9.3); NEUTROPHILS # (AUTO) 8.7 K/uL (1.8-7.7); NEUTROPHILS % (AUTO) 82.6 % (40.0-70.0); PLATELET COUNT (AUTO) 219 K/uL (130-430); RED BLOOD CELL COUNT(AUTO) 4.71 MIL/uL (4.2-6.2); RED CELL DISTRIBUTION WIDTH 14.4 % (9.0-15.0); WHITE BLOOD COUNT (AUTO) 10.5 K/uL (4.8-10.8)
[2021-03-13 04:31] LABS: BILIRUBIN,URINE NEGATIVE (NEGATIVE); BLOOD, URINE NEGATIVE (NEGATIVE); CLARITY/URINE CLEAR (CLEAR); COLOR,URINE YELLOW (YELLOW); GLUCOSE,URINE NEGATIVE (NEGATIVE); KETONES,URINE NEGATIVE (NEGATIVE); LEUKOCYTE ESTERASE ,URINE TRACE (NEGATIVE); NITRITE, URINE NEGATIVE (NEGATIVE); PH,URINE 6.5 (5.0-8.0); PROTEIN URINE NEGATIVE (NEGATIVE); UROBILINOGEN,URINE 0.2 (0.2-1.0)
[2021-03-13 04:39] LABS: ANION GAP 8 (5-15); CALCIUM 9.6 mg/dL (8.4-11.0); CHLORIDE 104 mmol/L (98-107); CREATININE 0.76 mg/dL (0.55-1.30); GLUCOSE 120 mg/dL (70-99); POTASSIUM 5.3 mmol/L (3.5-5.1); SODIUM SERUM 140 mmol/L (136-145); UREA NITROGEN, BLOOD 20 mg/dL (8-21)
[2021-03-13 04:44] LABS: ALANINE AMINOTRANSFERASE 21 U/L (12-78); ALBUMIN 3.7 g/dL (3.4-4.8); ASPARTATE AMINOTRANSFERASE 36 U/L (10-37); LIPASE 160 U/L (73-393); TOTAL BILIRUBIN 0.5 mg/dL (0.0-1.0)
[2021-03-13 05:05] LABS: BACTERIA,URINE FEW /HPF (None Seen); MUCUS,URINE None Seen /LPF (None Seen); RBC,URINE 0-3 /HPF (0-3)
[2021-03-13] MEDS ORDERED: DIATR MEGLU/DIATRIZ SOD 30 ML SOLUTION PO ONE (07:07)
--- NOTE | 2021-03-13 07:19 | NUR ---
Gave report to Jayshree WEEMS
--- NOTE | 2021-03-13 07:22 | NUR ---
ASSUMED PATIENT CARE 70 YEARS OLD FEMALE PRESENTS TO ER WITH ABDOMINAL PAIN CONDITION IMPROVED PO CONTRAST IN PROGRESS AWAITING FOR ABDOMINAL CT.
[2021-03-13] MEDS ORDERED: NACL 0.9% 1,000 ML IV ONE (10:00)
[2021-03-13] MEDS ORDERED: FUROSEMIDE 40 MG/4 ML VIAL IVP ONE (10:15)
[2021-03-13] MEDS ORDERED: CALCIUM GLUCONATE 1 GM in NS 100 ML IV ONE (10:15)
[2021-03-13] MEDS ORDERED: INSULIN REGULAR, HUMAN 10 UNITS/0.1 ML INJ IVP ONE (10:15)
[2021-03-13] MEDS ORDERED: DEXTROSE 50% JECT 50 ML DISP.SYRIN IVP ONE (10:15)
[2021-03-13] MEDS ORDERED: CALCIUM GLUCONATE 1 GM/10 ML VIAL ONE (10:19)
[2021-03-13 12:16] LABS: ANION GAP 11 (5-15); CALCIUM 9.3 mg/dL (8.4-11.0); CHLORIDE 105 mmol/L (98-107); CREATININE 0.87 mg/dL (0.55-1.30); GLUCOSE 53 mg/dL (70-99); POTASSIUM 3.4 mmol/L (3.5-5.1); SODIUM SERUM 140 mmol/L (136-145); UREA NITROGEN, BLOOD 16 mg/dL (8-21)
[2021-03-13 12:23] LABS: ALANINE AMINOTRANSFERASE 21 U/L (12-78); ALBUMIN 3.6 g/dL (3.4-4.8); ASPARTATE AMINOTRANSFERASE 16 U/L (10-37); TOTAL BILIRUBIN 0.3 mg/dL (0.0-1.0)
[2021-03-13] MEDS ORDERED: ONDA-8 TL (12:37)
--- NOTE | 2021-03-13 12:45 | NUR ---
Apple juice and fruit given to patient at this time, well tolerated , will check BS prior discharge
--- NOTE | 2021-03-13 13:00 | NUR ---
Urine and covid test sent to the lab
[2021-03-13 13:40] VITALS: BP_SYST 121
--- NOTE | 2021-03-13 13:41 | NUR ---
patient condition improved denies abdominal pain nausea vomiting d/c home with instructions after care reviewed understood.
--- NOTE | 2021-03-13 13:42 | NUR ---
Patient given written and verbal discharge instructions and verbalizes understanding. ER MD discussed with patient the results and treatment provided. Patient in stable condition. ID arm band removed. IV catheter removed intact and dressing applied, no active bleeding. Rx of given. Patient educated on pain management and to follow up with PMD. Pain Scale . Opportunity for questions provided and answered. Medication side effect fact sheet provided.
== END 2021-03-13 13:40 | disposition home or self-care (01) ==
LOC: SED 02:59
DX: R10.33 Periumbilical pain (principal); I10 Essential (primary) hypertension; E11.9 Type 2 diabetes mellitus without complications; K21.9 Gastro-esophageal reflux disease without esophagitis; Z88.0 Allergy status to penicillin
CPT/HCPCS: 36415; 74021; 74176; 76376; 80053; 81000; 82962; 83690; 85025; 96365; 96375; 99285; J0610; J1815; J1940; J2270; J2405; Q9964

== ENCOUNTER 2021-11-01 16:38 | Emergency (ER) | payer BC ==
[~2021-11-01] VITALS: Ht 144.8 cm; Wt 44.5 kg
[2021-11-01 16:38] VITALS: BP_SYST 140
[~2021-11-01 16:38] MED LIST changes: +ONDA-8 TL
--- NOTE | 2021-11-01 16:40 | NUR ---
Patient triaged and placed in waiting room. VSS and patient appears in no acute distress at this time. Accompanied by FRIEND, awaiting available bed, and MD notified of need for MSE.
--- NOTE | 2021-11-01 16:50 | NUR ---
PT STATES VAGINAL PAIN WITH RECTAL PAIN FOR LAST 5 DAYS. PT STATES ITCHING IN VAGINAL AREA. DENIES ANY BLEEDING
[2021-11-01 20:57] LABS: BILIRUBIN,URINE NEGATIVE (NEGATIVE); BLOOD, URINE NEGATIVE (NEGATIVE); CLARITY/URINE CLEAR (CLEAR); COLOR,URINE YELLOW (YELLOW); GLUCOSE,URINE NEGATIVE (NEGATIVE); KETONES,URINE NEGATIVE (NEGATIVE); LEUKOCYTE ESTERASE ,URINE NEGATIVE (NEGATIVE); NITRITE, URINE NEGATIVE (NEGATIVE); PROTEIN URINE NEGATIVE (NEGATIVE); UROBILINOGEN,URINE 0.2 (0.2-1.0)
--- NOTE | 2021-11-01 21:00 | NUR ---
c/o vaginal burning x 5 days. could not get in with pcp. denies pain during urination and itchiness. denies dishcharge. pmh: denies
[2021-11-01] MEDS ORDERED: MICO24CM2 VG (22:33)
--- NOTE | 2021-11-01 22:50 | NUR ---
Assisting primary nurse with patient care
[2021-11-01 22:53] VITALS: BP_SYST 140
--- NOTE | 2021-11-01 22:53 | NUR ---
Patient given written and verbal discharge instructions and verbalizes understanding. ER MD discussed with patient the results and treatment provided. Patient in stable condition. ID arm band removed. Rx of Monistat 3 given. Patient educated on pain management and to follow up with PMD. Pain Scale 0/10. Opportunity for questions provided and answered. Medication side effect fact sheet provided. Patient A/Ox4, VSS, resp even and unlabored. Patient in stable condition upon discharge.
== END 2021-11-01 22:53 | disposition home or self-care (01) ==
LOC: SED 16:38
DX: N76.0 Acute vaginitis (principal); R10.2 Pelvic and perineal pain; I10 Essential (primary) hypertension; Z79.899 Other long term (current) drug therapy
CPT/HCPCS: 81003; 99283